=== PATIENT | male | born 1945 | race African-American/Black ===

== ENCOUNTER 2019-10-02 11:45 | Inpatient (IN) | payer MEDICARE ==
[2019-10-02] VITALS (36 sets, daily range): BP systolic 56–190; BP diastolic 33–96
[~2019-10-02] VITALS: Ht 175.3 cm; Wt 70.8 kg
[2019-10-02 13:01] LABS: CALCIUM 8.5 mg/dL (8.5-10.1); CREATININE 0.7 mg/dL (0.6-1.3); POTASSIUM 3.2 mmol/L (3.5-5.1)
[2019-10-02 13:02] LABS: APTT 25.9 Seconds (25.0-31.3); INR 1.1; PROTIME 10.8 Seconds (9.20-11.50)
[2019-10-02 13:12] LABS: ALBUMIN 3.2 g/dL (3.4-5.0); TOTAL BILIRUBIN 0.4 mg/dL (<0.1-1.0); TOTAL PROTEIN 6.8 g/dL (6.4-8.2)
[2019-10-02 14:20] LABS: URINE BILIRUBIN NEGATIVE (Negative); URINE BLOOD NEGATIVE (Negative); URINE CLARITY CLEAR; URINE COLOR YELLOW; URINE GLUCOSE-RANDOM TRACE (Negative); URINE KETONES TRACE (Negative); URINE LEUKOCYTES-REFLEX NEGATIVE (Negative); URINE NITRITE-REFLEX NEGATIVE (Negative); URINE PROTEIN NEGATIVE (Negative); URINE UROBILINOGEN 0.2 E.U./dl (0.2-1.0)
--- NOTE | 2019-10-02 14:33 | EKG ---
[place] [address] ELECTROCARDIOGRAM REPORT Name: COURTNEY SIDDIQUI Room: [place] [address] ADM IN [facility].#: [id number] Admission: 10/02/19 Attend Phys: Anthony Oden, Discharge: Date of : 47 Date of Service: 10/02/19 1212 Report #: [id number] THIS REPORT FOR: //name// [place] [facility] Test Date: 2019-10-02 Test Time: 12:12:58 Pat Name: COURTNEY SIDDIQUI Department: Room: [facility] Gender: M [employer] Laboratory Assistant: DIPAK : 1945 Requested By: Edmund Moon Order Number: [id number] MD: Sanjay Thompson Measurements Intervals [place] Rate: 108 P: 0 PA: 104 QRS: 63 QRSD: 101 T: -74 QT: 328 QTc: 440 Interpretive Statements Sinus tachycardia borderline low voltage, extremity leads Artifact in lead(s) I,II,III,aVR,aVL,aVF,V2,V3,V4,V5 No previous ECG available for comparison Electronically Signed On 10-02-2019 14:31:33 CDT by Sanjay Thompson [email or web address] <ELECTRONICALLY SIGNED> By: Sanjay Thompson MD, FACC 10/02/19 1431 121 1212 Sanjay Thompson MD, FAC /EPI
[2019-10-02 15:47] LABS: HEMATOCRIT 45.8 % (42.0-52.0); HEMOGLOBIN 15.8 gm/dL (14.0-18.0); MCH 32.2 pg (26.0-34.0); MCHC 34.5 g/dL (28.0-37.0); MCV 93.5 fL (80.0-100.0); MPV 8.3 fl. (7.2-11.1); NUCLEATED RBCS 0 /100WBC; PLATELET COUNT* 207 thou/uL (150-400); RDW-CV 13.9 % (10.5-14.5); WBC 5.9 thou/uL (4.0-11.0)
[2019-10-02 16:15] LABS: ABSOLUTE LYMPHOCYTES 0.4 thou/uL (0.8-5.3); ABSOLUTE MONOCYTES 0.2 thou/uL (0.0-1.2); ABSOLUTE NEUTROPHILS 5.3 thou/uL (1.6-8.1); ATYPICAL LYMPHS 2 %; PLATELET ESTIMATE ADEQUATE
[2019-10-02 16:45] LABS: PCO2 44.7 mmHg (35.0-45.0); pH 7.311 (7.340-7.450)
[2019-10-02 16:47] LABS: BE -4.2 mmol/L (-2 to +3)
[2019-10-02 16:49] LABS: PO2 187.4 mmHg (75.0-100.0)
[2019-10-02 18:06] LABS: AMP/METHAMP Negative (Negative); BARBITURATES Negative (Negative); BENZODIAZEPINES Negative (Negative); COCAINE Negative (Negative); METHADONE Negative (Negative); OPIATES Negative (Negative); PCP Negative (Negative); THC Negative (Negative)
[2019-10-02 20:20] LABS: PCO2 VENOUS 42.3 mmHg (41.0-51.0); PO2 VENOUS 37.9 mmHg (35.0-45.0)
[2019-10-03] VITALS (68 sets, daily range): BP systolic 75–184; BP diastolic 35–121
[2019-10-03 05:30] LABS: ABSOLUTE LYMPHOCYTES 1.7 thou/uL (0.8-5.3); ABSOLUTE MONOCYTES 0.6 thou/uL (0.0-1.2); ABSOLUTE NEUTROPHILS 8.1 thou/uL (1.6-8.1); BASOPHILS 0.3 %; EOSINOPHILS 0.1 %; HEMATOCRIT 41.6 % (42.0-52.0); HEMOGLOBIN 14.4 gm/dL (14.0-18.0); LYMPHOCYTES 16.5 %; MCH 32.1 pg (26.0-34.0); MCHC 34.5 g/dL (28.0-37.0); MONOCYTES 5.4 %; MPV 8.5 fl. (7.2-11.1); NUCLEATED RBCS 0 /100WBC; PLATELET COUNT* 226 thou/uL (150-400); POLYS 77.7 %; RBC 4.48 mil/uL (4.50-6.00); RDW-CV 13.9 % (10.5-14.5); WBC 10.4 thou/uL (4.0-11.0)
[2019-10-03 05:31] LABS: BE -4.3 mmol/L (-2 to +3); PCO2 VENOUS 38.6 mmHg (41.0-51.0); PO2 VENOUS 63.5 mmHg (35.0-45.0)
[2019-10-03 05:40] LABS: CALCIUM 7.7 mg/dL (8.5-10.1)
[2019-10-03 05:42] LABS: POTASSIUM 4.8 mmol/L (3.5-5.1)
--- NOTE | 2019-10-03 07:36 | NUR ---
SPOKE WITH EARLY IN SHIFT, STATES SHE IS UNSURE IF PT HAS MED ALLERGIES AND WILL CALL LATER TODAY WITH HOME MED LIST. 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 LEVOPHED GTT STARTED AT 2300, BP 60'S/30'S. PROPOFOL STOPPED AT THAT TIME, PRECEDEX INITIATED. GUARDING AND THRASHING WITH ABD PALPATION AND REPOSITIONING, PRN FENTANYL GIVEN ORDERED. MIRALAX AND DULCOLAX SUPPOSITORY GIVEN EARLY IN SHIFT, MODERATE TO LARGE SOFT BM THIS AM. PT AWOKE @ 0600 DURING CARES, FOLLOWED COMMANDS, WHEN TOLD HE WAS IN THE HOSPITAL PT BEGAN VIOLENTLY THRASHING REQUIRING PROPOFOL BE RESTARTED. PT HAS BEEN TURNED Q2HR THROUGHOUT THE SHIFT.
[2019-10-03 14:35] LABS: BE -4.8 mmol/L (-2 to +3); PCO2 VENOUS 41.1 mmHg (41.0-51.0); PO2 VENOUS 51.5 mmHg (35.0-45.0)
--- NOTE | 2019-10-03 15:45 | NUR ---
ICU rounds: Pt weaned from vent this morning around 10am, Pt was agitated post extubation, Ativan given, Pt was alert but unable to follow commands, Pt has been sleep since. Pulm following. Vitals stable. Covid pending. CM left for Pt's to complete assessment, awaiting call back. Cm received a call, [facility], transfer nurse, Charlene, can be contacted at [phone]. Following.
[2019-10-04] VITALS (25 sets, daily range): BP systolic 97–180; BP diastolic 52–138
[2019-10-04] MEDS ORDERED: ARTIFICIAL TEAR15 M4 OP (00:50)
[2019-10-04 04:07] LABS: HEMOGLOBIN 13.7 gm/dL (14.0-18.0); MCH 31.8 pg (26.0-34.0); MCHC 34.2 g/dL (28.0-37.0); MPV 8.8 fl. (7.2-11.1); RBC 4.3 mil/uL (4.50-6.00); RDW-CV 13.8 % (10.5-14.5); WBC 13.6 thou/uL (4.0-11.0)
[2019-10-04 04:24] LABS: ALBUMIN 2.4 g/dL (3.4-5.0); CALCIUM 8.3 mg/dL (8.5-10.1); CREATININE 0.9 mg/dL (0.6-1.3); MAGNESIUM 1.8 mg/dL (1.8-2.4); TOTAL BILIRUBIN 0.8 mg/dL (<0.1-1.0); TOTAL PROTEIN 5.6 g/dL (6.4-8.2)
[2019-10-04 04:25] LABS: POTASSIUM 3.1 mmol/L (3.5-5.1)
[2019-10-04 06:49] LABS: BE -4.3 mmol/L (-2 to +3); PCO2 27.8 mmHg (35.0-45.0); pH 7.436 (7.340-7.450)
[2019-10-04 06:51] LABS: PO2 57.7 mmHg (75.0-100.0)
--- NOTE | 2019-10-04 08:42 | NUR ---
2200- NG TUBE NOTED OUT TO 25CM, ADVANCED AND PLACEDMENT CONFIRMED BY XRAY. 2300- HR SUSTAINING 130'S. WHILE CONNECTING EKG TO VERIFY RHYTHM HR SUDDENLY INCREASED TO 240'S AND SUSTAINED APPROXIMATELY 30 SECONDS, SEE EKG. DR KU TO UNIT, METOPROLOL GIVEN PER HER ORDER 5MG IVP AND 25MG PER NG. TEMP 99.8 AT THAT TIME, TYLENOL GIVEN PER NG. BG AT THAT TIME 107. 0030- TF STARTED @ 20ML/HR, GOAL 50ML/HR. 0400- TF RESIDUAL 20ML, ADVANCED TO 40ML/HR. 0500- LUNG SOUNDS WET, PREVIOUSLY DIMINISHED WITH MILD COARSENESS. DR VILLALOBOS NOTIFIED, IVP LASIX GIVEN PER ORDER.
[2019-10-05] VITALS (21 sets, daily range): BP systolic 118–185; BP diastolic 57–106
[2019-10-05 05:59] LABS: HEMATOCRIT 39.5 % (42.0-52.0); HEMOGLOBIN 13.6 gm/dL (14.0-18.0); MCH 31.9 pg (26.0-34.0); MCHC 34.5 g/dL (28.0-37.0); MCV 92.5 fL (80.0-100.0); MPV 9.2 fl. (7.2-11.1); RBC 4.27 mil/uL (4.50-6.00); RDW-CV 14.2 % (10.5-14.5); WBC 13.8 thou/uL (4.0-11.0)
[2019-10-05 06:02] LABS: CALCIUM 8.7 mg/dL (8.5-10.1); CREATININE 1.2 mg/dL (0.6-1.3); POTASSIUM 3.5 mmol/L (3.5-5.1)
--- NOTE | 2019-10-05 18:54 | NUR ---
ASSESSMENT CHARTED. MOVING ALL EXTREMETIES. DOES NOT FOLLOW COMMANDS. HAS BEEN LESS RESTLESS THIS MORNING BUT PRETTY AGITATED THIS AFTERNOON. PT PULLED OUT NG TUBE. UNABLE TO PLACE ANOTHER DUE TO PATIENT THRASHING, BOTH NARES ATTEMPTED. ORDERS RECEIVED TO LEAVE OUT FOR NOW AND START IV FLUIDS. 3 BM'S THIS SHIFT. PT DOES NOT APPEAR TO BE IN ANY PAIN. T MAX 99.8 AT 1600 OTHERWISE AFIBILE. INFECTIOUS DISEASE CONSULTED AND LABS SENT DOWN. 1ST COVID TEST CAME BACK NEGATIVE- A SECOND ONE WAS SENT AROUND NOON TODAY. VSS THIS SHIFT.
[2019-10-06] VITALS (20 sets, daily range): BP systolic 94–162; BP diastolic 57–77
[2019-10-06 07:53] LABS: HEMATOCRIT 37.7 % (42.0-52.0); MCHC 34.4 g/dL (28.0-37.0); MCV 93.2 fL (80.0-100.0); RBC 4.04 mil/uL (4.50-6.00); RDW-CV 14.1 % (10.5-14.5); WBC 9.8 thou/uL (4.0-11.0)
[2019-10-06 08:15] LABS: ALBUMIN 2.3 g/dL (3.4-5.0); CALCIUM 8.1 mg/dL (8.5-10.1); CREATININE 1.1 mg/dL (0.6-1.3); MAGNESIUM 1.7 mg/dL (1.8-2.4); POTASSIUM 3.3 mmol/L (3.5-5.1); TOTAL PROTEIN 5.9 g/dL (6.4-8.2)
--- NOTE | 2019-10-06 15:25 | NUR ---
ICU rounds: 1st covid negative, completing a 2nd covid, its still pending. AMS, not in restraints but has soft mits. Burciaga in place. Central line. Replace NG tube. CM spoke with Pt's . Per , Pt is normally independent, completes cooking and cleaning. Pt has a walker and cane that he can use for mobility. Pt also wears a leg brace. No hx of HH or SNF> Hx of ARU at [facility]. Goal is home, CM to follow for dc needs. Following.
--- NOTE | 2019-10-06 17:01 | EKG ---
[place] [address] ELECTROCARDIOGRAM REPORT Name: COURTNEY SIDDIQUI Room: [address] ADM IN M.R.#: [id number] Admission: 10/02/19 Attend Phys: Anthony Oden, Discharge: Date of : 47 Date of Service: 10/03/19 2314 Report #: [id number] THIS REPORT FOR: //name// [facility] Test Date: 2019-10-03 Test Time: 23:14:28 Pat Name: COURTNEY SIDDIQUI Department: Room: [address] Gender: M Direct Casting Operator: HUGH : 1945 Requested By: Lauren Wright Order Number: [id number] Billie MD: Sanjay Thompson Measurements Intervals [place] Rate: 108 P: 65 OK: 192 QRS: 65 QRSD: 76 T: 3 QT: 306 QTc: 410 Interpretive Statements Sinus tachycardia Anterior infarct, old Compared to ECG 10/02/2019 12:12:58 Myocardial infarct finding now present Electronically Signed On 10-06-2019 16:59:26 CDT by Sanjay Thompson [email or web address] <ELECTRONICALLY SIGNED> By: Sanjay Thompson MD, FACC 10/06/19 1659 2314 2314 Sanjay Thompson MD, [facility] /EPI
--- NOTE | 2019-10-06 17:01 | EKG ---
[place] [address] ELECTROCARDIOGRAM REPORT Name: COURTNEY SIDDIQUI Room: [address] ADM IN ..#: [id number] Admission: 10/02/19 Attend Phys: Anthony Oden, Discharge: Date of : 47 Date of Service: 10/03/19 2249 Report #: [id number] THIS REPORT FOR: //name// [facility] Test Date: 2019-10-03 Test Time: 22:49:40 Pat Name: COURTNEY SIDDIQUI Department: Room: [address] Gender: M Icer Hand: TMPAUL : 1945 Requested By: Lauren Wright Order Number: [id number] Billie MD: Sanjay Thompson Measurements Intervals [place] Rate: 240 P: 76 TN: 121 QRS: 88 QRSD: 74 T: 254 QT: 225 QTc: 450 Interpretive Statements Supraventricular tachycardia Anterior infarct, old Repolarization abnormality, prob rate related Artifact in lead(s) I,II,III,aVR,aVL,aVF,V1,V2,V3 and baseline wander in lead(s) V3 Compared to ECG 10/02/2019 12:12:58 Myocardial infarct finding now present Early repolarization now present Sinus tachycardia no longer present Electronically Signed On 10-06-2019 16:59:20 CDT by Sanjay Thompson [email or web address] <ELECTRONICALLY SIGNED> By: Sanjay Thompson MD, [facility] 10/06/19 1659 48 48 Sanjay Thompson MD, [facility] /EPI
--- NOTE | 2019-10-06 18:58 | NUR ---
PT IS CONFUSED AND AGITATED PLACED AN NG TUBE IN RIGHT NARE PER DR SHORT NG TUBE LAST 10MINS AND PT PULLED OUT NG TUBE CH[place] SPOKE WITH FAMILY THROUGHOUT DAY WITH UPDATES
[2019-10-07] VITALS (10 sets, daily range): BP systolic 148–165; BP diastolic 68–76
[2019-10-07 07:08] LABS: HEMATOCRIT 36.7 % (42.0-52.0); HEMOGLOBIN 12.7 gm/dL (14.0-18.0); MCH 31.9 pg (26.0-34.0); MCHC 34.7 g/dL (28.0-37.0); MCV 91.9 fL (80.0-100.0); MPV 9.6 fl. (7.2-11.1); RBC 3.99 mil/uL (4.50-6.00); RDW-CV 13.6 % (10.5-14.5); WBC 8.2 thou/uL (4.0-11.0)
[2019-10-07 07:27] LABS: CREATININE 0.9 mg/dL (0.6-1.3); MAGNESIUM 1.7 mg/dL (1.8-2.4)
--- NOTE | 2019-10-07 08:01 | NUR ---
ASSUMED PATIENT CARE AT 1900. ASSESSMENTS COMPLETED CHARTED. CARDIAC MONITORING IN PLACE. PATIENT REMAINS CONFUSED BUT IS SPEAKING IN FULL SENTENCES. HOURLY ROUNDING IN PLACE FOR PATIENT SAFETY. BED LOCKED AND IN LOWEST POSITION. BED ALARM ON. CLWR.
--- NOTE | 2019-10-07 11:52 | NUR ---
PT CONFUSED AND STATES "WANT TO GO HOME". FREQUENT REORIENTATION PROVIDED. HAD 2 BM THIS AM. COMPLETE BATH GIVEN. VSS. ELECTROLYTES REPLACED PER PROTOCOL. REPORT GIVEN TO ELSA VANESSA, DONNELL.
--- NOTE | 2019-10-07 15:42 | NUR ---
ICU rounds: Tele status. Speaking more clearly. A&Ox1. CM to following for dispo.
--- NOTE | 2019-10-07 16:33 | NUR ---
[place] RESTING IN BED. ALERT AND ORIENTED TO SELF BUT VERY CONFUSED AND IMPULSIVE. HE HAS A ROSS TO DRAIN, Q2H TURNS, FREQUENT REORIENTATION, ASSIST WITH FEEDING, INCONTINENT OF BOWEL. BLOOD GLUCOSE CHECKS AC/HS WITH SLIDING SCALE INSULIN COVERAGE. HOURLY ROUNDING COMPLETED FOR PATIENT SAFETY.
[2019-10-08] VITALS: BP 153/67
[2019-10-08 03:40] VITALS: BP 152/65
[2019-10-08 06:47] LABS: ALBUMIN 2.1 g/dL (3.4-5.0); CALCIUM 7.9 mg/dL (8.5-10.1); CREATININE 0.8 mg/dL (0.6-1.3); MAGNESIUM 1.8 mg/dL (1.8-2.4); POTASSIUM 3.3 mmol/L (3.5-5.1); TOTAL BILIRUBIN 0.7 mg/dL (<0.1-1.0); TOTAL PROTEIN 5.6 g/dL (6.4-8.2)
--- NOTE | 2019-10-08 07:41 | NUR ---
PT CONFUSED. CAN BE IMPULSIVE. PT REMAINED CALM MOST OF SHIFT. PT SLEPT OFF AND ON. DROPLET PRECAUTION IN PLACE, PENDING RESP PANELS. ROSS IN PLACE. INCONTINENT OF BOWEL. FALL PRWECAUTION IN PLACE. CALL LIGHT WITHIN REACH. HOURLY ROUNDINGS MADE. WILL CONTINUE TO MONITOR.
[2019-10-08 08:00] VITALS: BP 149/68
[2019-10-08 11:48] VITALS: BP 159/62
[2019-10-08 16:04] VITALS: BP 152/76
--- NOTE | 2019-10-08 16:06 | NUR ---
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
[2019-10-08 20:00] VITALS: BP 177/71
[2019-10-09] VITALS: BP 166/70
[2019-10-09 04:00] VITALS: BP 119/83
--- NOTE | 2019-10-09 05:58 | NUR ---
ASSESSMENTS COMPLETED AT BEDSIDE, PLEASE REFER TO CHARTING. MEDICATIONS ADMINISTERD PER MAR. HOURLY ROUNDING COMPLETED FOR SAFETY. BED ALARM ON AND CALL LIGHT WITHIN REACH. EPISODE OF IMPULSIVE BEHAVIOR AT START OF SHIFT, NO OTHER ISSUES THROUGH OUT NIGHT.
[2019-10-09 08:00] VITALS: BP 154/73
--- NOTE | 2019-10-09 09:12 | NUR ---
CM left VM for Pt's to discuss disposition. Pt will likely need skilled prior to returning home. Await [facility] n[facility] eval.
[2019-10-09 11:56] VITALS: BP 145/59
--- NOTE | 2019-10-09 15:39 | NUR ---
PT IS A/O X2,VSS,SHEET ROCK LAYER IN PLACE.NO C/O PAIN.CT HEAD COMPLETED.PT NOT ABLE TO COMPLETE MRI DUE TO IMPLANTED DEVICE.PT SAT UP IN CHAIR FOR SEVERAL HOURS THIS AM.PT STILL HAS POOR APPETITE AND NEEDS ASSISTANCE AND ENCOURAGEMENT WITH MEALS.CALL LIGHT AND FALL PRECAUTIONS IN PLACE.WILL CONTINUE TO MONITOR FOR DURATION OF SHIFT.
[2019-10-09 15:59] VITALS: BP 138/62
[2019-10-09 20:00] VITALS: BP 175/82
[2019-10-10] VITALS: BP 153/78
[2019-10-10 04:00] VITALS: BP 158/49
--- NOTE | 2019-10-10 05:40 | NUR ---
ASSESSMENTS COMPLETED AT BEDSIDE, PLEASE REFER TO CHARTING. MEDICATIONS ADMINISTERD PER MAR. HOURLY ROUNDING COMPLETED FOR SAFETY. BED ALARM ON AND CALL LIGHT WITHIN REACH. PT HAD NO EPISODES OF IMPULISVE BEHAVIOR THIS SHIFT, DID PRESENT WITH FLAT AFFECT. NO CONCERNS NOTED BY PT.
[2019-10-10 08:00] VITALS: BP 140/58
--- NOTE | 2019-10-10 11:39 | NUR ---
CM left another VM for Pt's regarding facility choice. Per therapy evals, Pt is not participating and continues to be confused. CM asked that PT see Pt today. CM to continue to attempt to reach Pt's . Following.
[2019-10-10 12:00] VITALS: BP 152/64
--- NOTE | 2019-10-10 14:20 | NUR ---
CM spoke with Pt's , in agreement that Pt will likely need rehab prior to returning home, recognizes that Pt is confused and states that this is not his baseline. CM to fax referrals to [facility] and [facility], rehab consult still pending. Pt needs to work with therapies. Following.
[2019-10-10 16:00] VITALS: BP 172/69
--- NOTE | 2019-10-10 17:58 | NUR ---
PT VSS, ORIENTED TO SELF, IMPULSIVE AND CAN GET AGGITATED AND BE COMBATIVE, SR WITH PVCS ON TELE, ROOM AIR, UP WITH ONE TO CHAIR AND COMMODE, ROSS CATHETER, INCONTINENT OF BOWEL, TRIPLE LUMEN RIGHT IJ, ACCUCHECKS, HOURLY ROUNDING PERFORMED, POSSESSIONS AND CALL LIGHT WITHIN REACH.
[2019-10-10 20:00] VITALS: BP 126/53
[2019-10-11] VITALS (33 sets, daily range): BP systolic 88–164; BP diastolic 49–75
--- NOTE | 2019-10-11 05:50 | NUR ---
ASSESSMENTS COMPLETED AT BEDSIDE, PLEASE REFER TO CHARTING. MEDICATIONS ADMINISTERD PER MAR. HOURLY ROUNDING COMPLETED FOR SAFETY. BED ALARM ON AND CALL LIGHT WITHIN REACH.
[2019-10-11 13:45] LABS: HEMATOCRIT 43.8 % (42.0-52.0); HEMOGLOBIN 13.7 gm/dL (14.0-18.0); MCH 31.8 pg (26.0-34.0); MCHC 31.4 g/dL (28.0-37.0); MCV 101.2 fL (80.0-100.0); MPV 8.4 fl. (7.2-11.1); NUCLEATED RBCS 0 /100WBC; PLATELET COUNT* 507 thou/uL (150-400); RBC 4.33 mil/uL (4.50-6.00); RDW-CV 15.8 % (10.5-14.5)
[2019-10-11 13:53] LABS: ALBUMIN 2.9 g/dL (3.4-5.0); ALKALINE PHOSPHATASE 118 U/L (46-116); BUN 25 mg/dL (7-18); CALCIUM 9.3 mg/dL (8.5-10.1); CHLORIDE 103 mmol/L (98-107); CREATININE 1.8 mg/dL (0.6-1.3); NT-PRO BRAIN NAT PEPTIDE 162 pg/mL (<300); POTASSIUM 5.7 mmol/L (3.5-5.1); SGOT 19 U/L (15-37); SGPT 43 U/L (30-65); SODIUM 138 mmol/L (136-145); TOTAL BILIRUBIN 0.5 mg/dL (<0.1-1.0); TOTAL PROTEIN 7.4 g/dL (6.4-8.2)
[2019-10-11 14:10] LABS: ANION GAP 30 mmol/L (7-16); GLUCOSE 565 mg/dL (70-99)
[2019-10-11 14:15] LABS: ABSOLUTE LYMPHOCYTES 1.3 thou/uL (0.8-5.3); ABSOLUTE MONOCYTES 0.3 thou/uL (0.0-1.2); ABSOLUTE NEUTROPHILS 30.4 thou/uL (1.6-8.1); PLATELET ESTIMATE ADEQUATE
[2019-10-11 14:19] LABS: CO2 < 5 mmol/L (21-32)
[2019-10-11 14:57] LABS: BE -21.6 mmol/L (-2 to +3)
[2019-10-11 14:58] LABS: PCO2 < 17.0 mmHg (35.0-45.0)
[2019-10-11 15:00] LABS: pH 7.177 (7.340-7.450)
[2019-10-11 15:01] LABS: PO2 141.1 mmHg (75.0-100.0)
[2019-10-11 17:52] LABS: URINE BLOOD 2+ (Negative); URINE COLOR YELLOW; URINE GLUCOSE-RANDOM NEGATIVE (Negative); URINE LEUKOCYTES-REFLEX NEGATIVE (Negative); URINE NITRITE-REFLEX NEGATIVE (Negative); URINE PROTEIN TRACE (Negative); URINE SPECIFIC GRAVITY >= 1.030 (1.005-1.030); URINE UROBILINOGEN 0.2 E.U./dl (0.2-1.0)
[2019-10-11 17:54] LABS: ICTOTEST (BILI CONFIRMATORY) Negative (Negative); URINE BILIRUBIN 2+ (Negative); URINE CLARITY CLOUDY; URINE KETONES 3+ (Negative)
[2019-10-11 18:00] LABS: SQUAMOUS >10 Many /LPF (0-3); URINE RBC 0-2 Rare /HPF (0-2); URINE WBC-REFLEX None Seen /HPF (0-5)
[2019-10-11 18:01] LABS: AMORPHOUS URATES Moderate /LPF (None Seen); FINE GRANULAR CASTS >10 Many /LPF (None Seen); HYALINE CASTS 0-3 Few /LPF (None Seen)
--- NOTE | 2019-10-11 19:00 | NUR ---
PATIENT TO ICU AT 1530 FOR DECREASED MENTATION AND ABNORMAL ABD. INTUBATED AT 1605. HEART RATE ELEVATED 120-130'S WHEN FIRST BROUGHT INTO ROOM. INTUBATION CAUSED HEART RATE TO INCREASE TO 150-160'S. SEDATED CURRENTLY ON FENTANYL AND PROPOFOL. DKA PROTOCOL INITIATED. BS UPON ARRIVAL TO ROOM 283. INSULIN STARTED AT 5 UNITS/HR. ABG ORDERED FOR 1899. FOLLOW UP LABS ORDERED FOR 1999. ASSESSMENT CHARTED. VSS AT THIS TIME. WILL CONTINUE TO MONITOR.
[2019-10-11 19:13] LABS: MAGNESIUM 2.3 mg/dL (1.8-2.4); PHOSPHORUS* 7.1 mg/dL (2.5-4.9)
--- NOTE | 2019-10-11 20:03 | NUR ---
ASSUMED CARE OF PATIENT AROUND 0730. PT. APPEARED CALM IN BED, IN NO APPARENT DISCOMFORT. PLACED NC 4L O2 SATURATION IN THE LOW 80S WHEN ASSESSED. SATS STABILIZED TO UPPER 90S. RT NOTIFIED. MESSAGED DR. SHORT TO APPRAISE OF ELEVATED BLOOD SUGAR AND CHANGE IN STATUS FROM SHIFT REPORT. BLOOD GLUCOSE LAB DRAWN. MESSAGED OF LAB RESULT AND TACHYCARDIA TREND. CXR PERFORMED BUT UNREMARKABLE. STAT ABG PERFORMED. RESULTS CONVEYED TO DR. SHORT BY LAB. PT. TRANSPORTED OUT OF ROOM FOR ABD. CAT SCAN AND TRANSFERED TO ICU FROM THERE. REPORT GIVEN TO ICU NURSE FOR ADMISSION TO ICU. ORDERS RECEIVED FROM DR. BAUTISTA AND DR. GRACIA. MESSAGED AND SPOKE TO DR. SHORT TO APPRAISE OF DEVELOPMENTS. HOURLY ROUNDING WAS PERFORMED.
[2019-10-11 20:22] LABS: ALBUMIN 2.5 g/dL (3.4-5.0); CALCIUM 8.8 mg/dL (8.5-10.1); CREATININE 1.6 mg/dL (0.6-1.3); MAGNESIUM 1.9 mg/dL (1.8-2.4); PHOSPHORUS* 1.6 mg/dL (2.5-4.9)
[2019-10-11 20:25] LABS: POTASSIUM 3.8 mmol/L (3.5-5.1)
[2019-10-11 20:27] LABS: BE -12.1 mmol/L (-2 to +3); PCO2 22.2 mmHg (35.0-45.0); pH 7.334 (7.340-7.450)
[2019-10-11 20:28] LABS: PO2 124.6 mmHg (75.0-100.0)
[2019-10-12] VITALS (41 sets, daily range): BP systolic 96–160; BP diastolic 51–87
[2019-10-12 00:47] LABS: ALBUMIN 2.4 g/dL (3.4-5.0); CALCIUM 9.1 mg/dL (8.5-10.1); CREATININE 1.6 mg/dL (0.6-1.3); MAGNESIUM 1.8 mg/dL (1.8-2.4); PHOSPHORUS* 0.6 mg/dL (2.5-4.9); POTASSIUM 3.9 mmol/L (3.5-5.1)
[2019-10-12 04:11] LABS: BE -10.5 mmol/L (-2 to +3); pH 7.436 (7.340-7.450)
[2019-10-12 04:14] LABS: PCO2 < 17.0 mmHg (35.0-45.0)
[2019-10-12 04:15] LABS: PO2 128.5 mmHg (75.0-100.0)
[2019-10-12 04:31] LABS: ABSOLUTE BASOPHILS 0.1 thou/uL (0.0-0.2); BASOPHILS 0.4 %; HEMATOCRIT 35.8 % (42.0-52.0); HEMOGLOBIN 12.2 gm/dL (14.0-18.0); LYMPHOCYTES 5.2 %; MCH 31.5 pg (26.0-34.0); MCHC 34.2 g/dL (28.0-37.0); MONOCYTES 0.2 %; MPV 7.3 fl. (7.2-11.1); NUCLEATED RBCS 0 /100WBC; POLYS 94.2 %; RBC 3.88 mil/uL (4.50-6.00); WBC 18.1 thou/uL (4.0-11.0)
[2019-10-12 04:35] LABS: MCV 92.2 fL (80.0-100.0); PLATELET COUNT* 356 thou/uL (150-400)
[2019-10-12 05:00] LABS: PREALBUMIN 15.3 mg/dL (18.0-35.7)
[2019-10-12 05:04] LABS: ALBUMIN 2.3 g/dL (3.4-5.0); ALKALINE PHOSPHATASE 84 U/L (46-116); ANION GAP 16 mmol/L (7-16); BUN 24 mg/dL (7-18); CALCIUM 9.2 mg/dL (8.5-10.1); CHLORIDE 114 mmol/L (98-107); CO2 15 mmol/L (21-32); CREATININE 1.5 mg/dL (0.6-1.3); GLUCOSE 182 mg/dL (70-99); PHOSPHORUS* 1.1 mg/dL (2.5-4.9); POTASSIUM 4.6 mmol/L (3.5-5.1); SGOT 18 U/L (15-37); SGPT 32 U/L (30-65); SODIUM 145 mmol/L (136-145); TOTAL BILIRUBIN 0.3 mg/dL (<0.1-1.0)
--- NOTE | 2019-10-12 08:09 | NUR ---
RECEIVED REPORT AND ASSUMED CARE AT 1900. VSS. ICU MONITORING IN PLACE. ASSESSMENT COMPLETED CHARTED. PT SEDATED/ VENTED. MEDICATION GTT PER ORDERS. BED LOCKED IN LOWEST POSITION, BED ALARM ON. POSITION CHANGED EVERY TWO HOURS, HEELS OFF LOADED. ORAL CARE COMPLETED. ROUNDING COMPLETED AND ALL NEEDS MET.
[2019-10-12 08:26] LABS: ALBUMIN 2.3 g/dL (3.4-5.0); CALCIUM 9.1 mg/dL (8.5-10.1); CREATININE 1.5 mg/dL (0.6-1.3); MAGNESIUM 1.8 mg/dL (1.8-2.4); PHOSPHORUS* 1.7 mg/dL (2.5-4.9); POTASSIUM 4.6 mmol/L (3.5-5.1)
[2019-10-12 11:09] LABS: URINE BLOOD 1+ (Negative); URINE CLARITY CLOUDY; URINE COLOR STRAW; URINE GLUCOSE-RANDOM NEGATIVE (Negative); URINE KETONES TRACE (Negative); URINE LEUKOCYTES NEGATIVE (Negative); URINE NITRITE NEGATIVE (Negative); URINE PROTEIN 1+ (Negative); URINE SPECIFIC GRAVITY >= 1.030 (1.005-1.030); URINE UROBILINOGEN 0.2 E.U./dl (0.2-1.0)
[2019-10-12 11:12] LABS: ICTOTEST (BILI CONFIRMATORY) Negative (Negative); URINE BILIRUBIN 2+ (Negative)
[2019-10-12 11:33] LABS: SQUAMOUS NONE SEEN /LPF (0-3); URINE RBC 3-10 Few /HPF (0-2); URINE WBC None Seen /HPF (0-5)
[2019-10-12 11:34] LABS: AMORPHOUS URATES Many /LPF (None Seen); CRYSTALS None Seen /LPF (None Seen); HYALINE CASTS 0-3 Few /LPF (None Seen); MUCUS None Seen strn/LPF (None Seen)
[2019-10-12 12:18] LABS: ALBUMIN 2.4 g/dL (3.4-5.0); CALCIUM 9.7 mg/dL (8.5-10.1); CREATININE 1.5 mg/dL (0.6-1.3); PHOSPHORUS* 1.5 mg/dL (2.5-4.9); POTASSIUM 4.4 mmol/L (3.5-5.1)
[2019-10-12] MEDS ORDERED: ARTIFICIAL TEAR15 M4 OPHTHALMIC (12:21)
[2019-10-12] MEDS ORDERED: NORVASC 2.5 MG2.5 M1 PO (12:22)
[2019-10-12] MEDS ORDERED: VOLTAREN GEL 1100 GM TOP (12:23)
[2019-10-12] MEDS ORDERED: PREDNISOLONE ACE5 ML OPHTHALMIC (12:24)
[2019-10-12] MEDS ORDERED: INSULIN AS100 UNIT/1 SUBQ (12:25)
[2019-10-12] MEDS ORDERED: LANTUSSOLASTAR SUBQ (12:26)
[2019-10-12 16:06] LABS: ALBUMIN 2.4 g/dL (3.4-5.0); CALCIUM 9.1 mg/dL (8.5-10.1); CREATININE 1.3 mg/dL (0.6-1.3); MAGNESIUM 1.8 mg/dL (1.8-2.4); PHOSPHORUS* 2.3 mg/dL (2.5-4.9); POTASSIUM 4.6 mmol/L (3.5-5.1)
--- NOTE | 2019-10-12 19:05 | NUR ---
ASSESSMENT CHARTED. VSS THROUGHOUT SHIFT. SEDATION CHANGED TO PRECEDEX AND FENTANYL. ONCE TITRATED TO MAX PATIENT LESS AGITATED. PROPOFOL ORDERED IF NEEDED. HR 40-50 SINCE STARTING PRECEDEX BUT MAINTAINS MOSTLY IN THE 50'S. DKA PROTOCOL ONGOING WITH LAST BLOOD SUGAR BEING 179 AT 1900. INSULIN DRIP RUNNING AT 2 UNITS/HR. Q2H TURNS. PATIENT RESTING WELL NOW. NO OTHER EVENTS DURING THIS SHIFT. UPDATED.
--- NOTE | 2019-10-12 19:17 | CON ---
[address] [address] CONSULTATION Name: ARTURCOURTNEY Lynn Room: [address] IN M.R.#: [id number] Admission: 10/02/19 Attend Phys: Anthony Oden MD Discharge: Date of : 47 Report #: [id number] THIS REPORT FOR: //name// cc: [facility] physician unknown [facility] physician unknown ~ THIS REPORT FOR: //name// CC: Anthony Oden [facility] DATE OF SERVICE: 10/12/2019 REASON FOR CONSULTATION: I was asked to see this patient emergently yesterday for acute respiratory failure. HISTORY OF PRESENT ILLNESS: The patient was not responsive. His ABG did show severe metabolic acidosis. The patient was intubated emergently. He was found to be in DKA, was started on DKA protocol. Currently, he is on the ventilator and is not responsive. He is agitated. He is on Precedex and fentanyl. He has a small amount of ET tube secretion. He was admitted on 10/01 due to altered mental status. His blood glucose was 36. His mental status did not improve with correcting his blood glucose. He continued to be confused and was on the ventilator. He was extubated on 10/02. He was somewhat alert, but his status got worse yesterday. He is currently on the ventilator. PAST MEDICAL HISTORY: Diabetes mellitus, hypertension, weight loss, CVA, status post cervical surgery in 2011. ALLERGIES: LISINOPRIL, SIMVASTATIN. MEDICATIONS: Currently, he is on IV fluid, Precedex, fentanyl, vancomycin, Solu-Medrol, Protonix, insulin drip, levofloxacin, metoprolol, thiamine, cefdinir, Lovenox. SOCIAL HISTORY: Positive for smoking, details are not known. FAMILY HISTORY: Hypertension per chart. REVIEW OF SYSTEMS: As mentioned as above. I have discussed the patient with RN, other systems otherwise negative. PHYSICAL EXAMINATION: [place] [address] CONSULTATION Name: COURTNEY SIDDIQUI Lynn Room: [address]#: [id number] Admission: 10/02/19 Attend Phys: Anthony Oden MD Discharge: Date of : 47 Report #: [id number] GENERAL: This is a thin, frail, malnourished gentleman. VITAL SIGNS: His O2 saturation on 40% FiO2 is 98%, respiratory rate 30, heart rate 68, blood pressure 110/57, temperature 37.3. HEENT: Normocephalic, atraumatic. Pupils equal, round, reactive to light. He is orally intubated. Nose is clear. NECK: There is no lymphadenopathy or thyromegaly. CARDIOVASCULAR: Regular rate and rhythm. PMI is nondisplaced. CHEST: Inspection is normal. LUNGS: Bibasilar crackles, dullness at the bases. ABDOMEN: Soft. Bowel sounds diminished. No mass. EXTREMITIES: There is no edema. LYMPHATICS: There is no lymphadenopathy. SKIN: Chronic changes. NEUROLOGIC: On the vent, on sedation, but agitated at times. LABORATORY DATA: I reviewed the following lab data: Chest x-ray shows ET tube is in good position, no infiltrate, COPD changes. CT of abdomen and pelvis showed nonobstructing bilateral renal calculi, small fat containing right indirect inguinal hernia. WBC yesterday was 32, today is 18.1, on 10/06 was 8.2; hemoglobin 12.2; platelets 356. Sodium 144, potassium 4.6, chloride 114, CO2 of 15, BUN 26, creatinine 1.5, glucose 283. Lactic acid 1.8. His COVID-19 is negative. ABG this morning; pH 7.43, pCO2 less than 17, pO2 128 on assist control rate of 30, tidal volume 450, PEEP of 5, FiO2 of 40%. Yesterday ABG before intubation; pH 7.1, pCO2 less than 17. IMPRESSION: 1. Acute respiratory failure secondary to severe metabolic acidosis, altered mental status? aspiration pneumonia versus others. 2. Diabetic ketoacidosis. 3. Encephalopathy due to severe metabolic acidosis secondary to diabetic ketoacidosis. 4. Acute kidney injury. 5. History of cerebrovascular accident. 6. History of pneumonia, now questionable aspiration pneumonia. 7. Diabetes mellitus. 8. Leukocytosis. PLAN AND RECOMMENDATIONS: 1. Titrate FiO2 to keep O2 saturation 94%. 2. Continue ventilator support until he is more stable and more alert. Vent setting was reviewed. 3. Antibiotic per ID. 4. Continue DKA treatment per protocol. 5. Lovenox for DVT prophylaxis. 6. Protonix [place] [address] CONSULTATION Name: COURTNEY SIDDIQUI Room: [address] IN M.R.#: [id number] Admission: 10/02/19 Attend Phys: Anthony Oden MD Discharge: Date of : 47 Report #: [id number] 7. Nephrology is consulted and monitor creatinine. 8. Follow up cultures. Thank you very much for allowing me to participate in care of this very nice gentleman. discussed w rn, rt The patient is critically ill. This critical care time 30 minutes without overlap. <ELECTRONICALLY SIGNED> By: Carmen Wang MD 10/12/19 1917 [id number] [id number] Wang MD /nt
[2019-10-12 20:50] LABS: ALBUMIN 2.3 g/dL (3.4-5.0); CALCIUM 9.1 mg/dL (8.5-10.1); CREATININE 1.4 mg/dL (0.6-1.3); MAGNESIUM 1.9 mg/dL (1.8-2.4); PHOSPHORUS* 2.4 mg/dL (2.5-4.9); POTASSIUM 4.9 mmol/L (3.5-5.1)
[2019-10-13] VITALS (30 sets, daily range): BP systolic 110–169; BP diastolic 55–92
[2019-10-13 00:46] LABS: ALBUMIN 2.2 g/dL (3.4-5.0); CALCIUM 9.1 mg/dL (8.5-10.1); CREATININE 1.3 mg/dL (0.6-1.3); MAGNESIUM 1.9 mg/dL (1.8-2.4); PHOSPHORUS* 2.5 mg/dL (2.5-4.9); POTASSIUM 4.6 mmol/L (3.5-5.1)
[2019-10-13 04:28] LABS: ABSOLUTE BASOPHILS 0.1 thou/uL (0.0-0.2); ABSOLUTE LYMPHOCYTES 1.1 thou/uL (0.8-5.3); ABSOLUTE MONOCYTES 0.6 thou/uL (0.0-1.2); ABSOLUTE NEUTROPHILS 19.3 thou/uL (1.6-8.1); BASOPHILS 0.4 %; HEMATOCRIT 36.6 % (42.0-52.0); HEMOGLOBIN 12.4 gm/dL (14.0-18.0); LYMPHOCYTES 5.2 %; MCH 31.3 pg (26.0-34.0); MCHC 33.9 g/dL (28.0-37.0); MCV 92.2 fL (80.0-100.0); MONOCYTES 2.8 %; NUCLEATED RBCS 0 /100WBC; PLATELET COUNT* 354 thou/uL (150-400); POLYS 91.6 %; RBC 3.97 mil/uL (4.50-6.00); RDW-CV 14.7 % (10.5-14.5); WBC 21.1 thou/uL (4.0-11.0)
[2019-10-13 04:30] LABS: PCO2 24.3 mmHg (35.0-45.0); pH 7.382 (7.340-7.450)
[2019-10-13 04:54] LABS: PO2 171.1 mmHg (75.0-100.0)
[2019-10-13 05:57] LABS: ALBUMIN 2.3 g/dL (3.4-5.0); CALCIUM 9.3 mg/dL (8.5-10.1); CREATININE 1.3 mg/dL (0.6-1.3); PHOSPHORUS* 2.6 mg/dL (2.5-4.9); POTASSIUM 4.7 mmol/L (3.5-5.1)
[2019-10-13 08:21] LABS: ALBUMIN 2.2 g/dL (3.4-5.0); PHOSPHORUS* 2.7 mg/dL (2.5-4.9); POTASSIUM 4.4 mmol/L (3.5-5.1)
[2019-10-13 10:17] LABS: URINE BILIRUBIN NEGATIVE (Negative); URINE BLOOD TRACE (Negative); URINE CLARITY CLEAR; URINE COLOR YELLOW; URINE GLUCOSE-RANDOM NEGATIVE (Negative); URINE KETONES NEGATIVE (Negative); URINE LEUKOCYTES NEGATIVE (Negative); URINE NITRITE NEGATIVE (Negative); URINE PROTEIN NEGATIVE (Negative); URINE SPECIFIC GRAVITY >= 1.030 (1.005-1.030); URINE UROBILINOGEN 0.2 E.U./dl (0.2-1.0)
[2019-10-13 12:14] LABS: ALBUMIN 2.1 g/dL (3.4-5.0); CALCIUM 8.6 mg/dL (8.5-10.1); MAGNESIUM 1.9 mg/dL (1.8-2.4); PHOSPHORUS* 2.9 mg/dL (2.5-4.9); POTASSIUM 4.5 mmol/L (3.5-5.1)
[2019-10-13 16:44] LABS: ALBUMIN 2.2 g/dL (3.4-5.0); CALCIUM 8.6 mg/dL (8.5-10.1); MAGNESIUM 1.9 mg/dL (1.8-2.4); PHOSPHORUS* 2.7 mg/dL (2.5-4.9); POTASSIUM 4.3 mmol/L (3.5-5.1)
--- NOTE | 2019-10-13 19:58 | NUR ---
ASSESSMENT CHARTED. PATIENT WITH INCREASED TREMORS WHEN AWAKE AND AGITATED. HE IS UNABLE TO FOLLOW ANY COMMAND. ABLE TO REACH UP TOWARDS ET TUBE. WEANING TRIAL SET FOR 0900 IN THE MORNING. SEDATION CHANGED FROM PRECEDEX TO PROPOFOL DUE TO EXTREME BRADYCARDIA WITH HR IN THE 30'S. PT APPEARS MORE RELAXED WITH PROPOFOL AND IS NOT AGITATED WHEN TURNED. TREMORS APPEAR TO BE BETTER WELL. PATIENT REMAINS ON DKA PROTOCOL. BS'S MAINTAINED IN THE 150-200 RANGE THROUGHOUT THE DAY ON 3 UNITS/HR.
[2019-10-13 20:33] LABS: ALBUMIN 2.1 g/dL (3.4-5.0); CALCIUM 9.1 mg/dL (8.5-10.1); CREATININE 0.9 mg/dL (0.6-1.3); PHOSPHORUS* 2.5 mg/dL (2.5-4.9); POTASSIUM 4.6 mmol/L (3.5-5.1)
[2019-10-14] VITALS (33 sets, daily range): BP systolic 93–161; BP diastolic 42–88
[2019-10-14 00:47] LABS: CALCIUM 8.7 mg/dL (8.5-10.1); CREATININE 0.9 mg/dL (0.6-1.3); MAGNESIUM 1.8 mg/dL (1.8-2.4); PHOSPHORUS* 2.5 mg/dL (2.5-4.9)
[2019-10-14 04:55] LABS: HEMATOCRIT 36.6 % (42.0-52.0); HEMOGLOBIN 12.3 gm/dL (14.0-18.0); MCH 30.7 pg (26.0-34.0); MCHC 33.7 g/dL (28.0-37.0); MCV 91.2 fL (80.0-100.0); MPV 7.7 fl. (7.2-11.1); NUCLEATED RBCS 0 /100WBC; PLATELET COUNT* 345 thou/uL (150-400); RBC 4.01 mil/uL (4.50-6.00); RDW-CV 14.7 % (10.5-14.5); WBC 13.4 thou/uL (4.0-11.0)
[2019-10-14 05:10] LABS: CALCIUM 8.8 mg/dL (8.5-10.1); CREATININE 0.9 mg/dL (0.6-1.3); MAGNESIUM 1.8 mg/dL (1.8-2.4); POTASSIUM 3.8 mmol/L (3.5-5.1); TOTAL BILIRUBIN 0.3 mg/dL (<0.1-1.0); TOTAL PROTEIN 5.4 g/dL (6.4-8.2)
[2019-10-14 05:18] LABS: PHOSPHORUS* 2.5 mg/dL (2.5-4.9)
[2019-10-14 05:52] LABS: ABSOLUTE LYMPHOCYTES 0.8 thou/uL (0.8-5.3); ABSOLUTE MONOCYTES 0.1 thou/uL (0.0-1.2); ABSOLUTE NEUTROPHILS 12.5 thou/uL (1.6-8.1); PLATELET ESTIMATE ADEQUATE
--- NOTE | 2019-10-14 06:59 | NUR ---
ASSUMED PATIENT CARE AT 1900. ASSESSMENTS COMPLETED CHARTED. CARDIAC MONITORING IN PLACE. PATIENT HAD A RUN VTACH DURING SUCTIONING BY RT ONCE DURING SHIFT. BED LOCKED AND IN LOWEST POSITION. FALL PRECAUTIONS IN PLACE FOR PATIENT SAFETY.
[2019-10-14 08:07] LABS: CALCIUM 8.6 mg/dL (8.5-10.1); CREATININE 0.8 mg/dL (0.6-1.3); MAGNESIUM 1.8 mg/dL (1.8-2.4); PHOSPHORUS* 2.6 mg/dL (2.5-4.9)
[2019-10-14 08:09] LABS: POTASSIUM 4.8 mmol/L (3.5-5.1)
--- NOTE | 2019-10-14 11:52 | NUR ---
ICU rounds: Pt intubated, weaning trial attempted this AM, didn't go well, will reattempt tomorrow. Central line. Restraints. [place]. Neuro following, EGD today, may need MRI and spinal tap, following.
[2019-10-14 12:18] LABS: ALBUMIN 2.1 g/dL (3.4-5.0); CALCIUM 8.8 mg/dL (8.5-10.1); CREATININE 0.8 mg/dL (0.6-1.3); MAGNESIUM 1.9 mg/dL (1.8-2.4); PHOSPHORUS* 2.4 mg/dL (2.5-4.9); POTASSIUM 3.5 mmol/L (3.5-5.1)
[2019-10-14 17:43] LABS: ALBUMIN 2.2 g/dL (3.4-5.0); CALCIUM 8.8 mg/dL (8.5-10.1); CREATININE 0.9 mg/dL (0.6-1.3); MAGNESIUM 1.8 mg/dL (1.8-2.4); PHOSPHORUS* 2.5 mg/dL (2.5-4.9)
--- NOTE | 2019-10-14 18:41 | NUR ---
PT HAD WEANING TRIAL TODAY SEDATION TURNED OFF AT 0830 BY 0900 PT WAS VERY AGITATED NOT FOLLOWING COMMANDS NOT REDIRECTABLE BREATHING 60 BREATHS PER MIN PER DR WEEKS TURN SEDATION BACK ON AND TRIAL TOMORROW AT 0900 TURN FENTANYL OFF AT [address] WEEKS TO GET HERE TO TURN OFF PROPOFOL EEG COMPLETED TODAY PT REMAINS INTUBATED AND SEDATED
[2019-10-14 20:13] LABS: ALBUMIN 2.2 g/dL (3.4-5.0); CALCIUM 8.8 mg/dL (8.5-10.1); MAGNESIUM 1.8 mg/dL (1.8-2.4); PHOSPHORUS* 2.6 mg/dL (2.5-4.9); POTASSIUM 3.8 mmol/L (3.5-5.1)
--- NOTE | 2019-10-14 23:06 | NUR ---
RENAL PANEL AND MAGNESIUM RETURNED ON PATIENT WNL. PAGED PHYSICIAN AND DKA PROTOCOL WAS STOPPED. INSULIN GTT STOPPED AND FLUIDS RESTARTED ON NS @ 100ML/HR. Q6H ACCUCHECKS PER PROTOCOL WITH SS INSULIN. WCTM
[2019-10-15] VITALS (38 sets, daily range): BP systolic 77–148; BP diastolic 39–101
--- NOTE | 2019-10-15 02:35 | NUR ---
ASSUMED PATIENT CARE AT 1900. ASSESSMENTS COMPLETED CHARTED. CARDIAC MONITORING IN PLACE. BED LOCKED AND IN LOWEST POSITION. PATIENT REPORT AND HANDOFF GIVEN TO ELSA CUNHA.
[2019-10-15 04:11] LABS: ABSOLUTE LYMPHOCYTES 0.5 thou/uL (0.8-5.3); ABSOLUTE MONOCYTES 0.4 thou/uL (0.0-1.2); ABSOLUTE NEUTROPHILS 8.8 thou/uL (1.6-8.1); BASOPHILS 0.3 %; HEMATOCRIT 33.8 % (42.0-52.0); HEMOGLOBIN 11.6 gm/dL (14.0-18.0); MCH 31.6 pg (26.0-34.0); MCHC 34.5 g/dL (28.0-37.0); MCV 91.8 fL (80.0-100.0); MONOCYTES 4.4 %; MPV 8.1 fl. (7.2-11.1); NUCLEATED RBCS 0 /100WBC; PLATELET COUNT* 333 thou/uL (150-400); POLYS 90.3 %; RBC 3.68 mil/uL (4.50-6.00); RDW-CV 14.6 % (10.5-14.5); WBC 9.7 thou/uL (4.0-11.0)
[2019-10-15 04:21] LABS: CALCIUM 8.3 mg/dL (8.5-10.1); CREATININE 1.1 mg/dL (0.6-1.3); MAGNESIUM 1.9 mg/dL (1.8-2.4); POTASSIUM 4.2 mmol/L (3.5-5.1)
--- NOTE | 2019-10-15 07:30 | NUR ---
ASSUMED PT CARE AT 0000. FENTANYL GTT OFF AT 0500, LEAVING ONLY PROPOFOL, PER DR WEEKS REQUEST IN PREPARATION FOR TTT THIS AM. PT TURNED Q2HR. SSI ADVANCED TO HIGH DOSE REGIMEN PER PROTOCOL.
[2019-10-15 09:51] LABS: BE -5.4 mmol/L (-2 to +3); PCO2 31.9 mmHg (35.0-45.0); pH 7.384 (7.340-7.450)
[2019-10-15 09:53] LABS: PO2 162.5 mmHg (75.0-100.0)
--- NOTE | 2019-10-15 11:50 | NUR ---
ICU rounds: Pt extubated today, not able to follow commands. Dispo pending.
--- NOTE | 2019-10-15 16:49 | NUR ---
ASSUMED CARE OF PT AROUND 0730 THIS AM. REFER TO ASSESSMENTS. PT DID WELL WITH WEANING TRIAL THIS AM AND ABLE TO BE EXTUBATED. TOLERATING 1.5L O2/NC TODAY. PT SAYING MOSTLY INCOMPREHENSIBLE SOUNDS TODAY. ATTEMPTED TO HAVE ST EVAL FOR SWALLOWING BUT PT DID NOT DO WELL AND ST RECOMMENDS NPO AT THIS TIME. PT SR WITH PAC'S. IVF INFUSING WITHOUT DIFFICULTY. NO OTHER CONCERNS AT THIS TIME. CLWR. WCTM.
[2019-10-16] VITALS (16 sets, daily range): BP systolic 121–162; BP diastolic 54–79
[2019-10-16 09:21] LABS: ABSOLUTE LYMPHOCYTES 0.7 thou/uL (0.8-5.3); ABSOLUTE MONOCYTES 0.4 thou/uL (0.0-1.2); ABSOLUTE NEUTROPHILS 6.3 thou/uL (1.6-8.1); BASOPHILS 0.2 %; HEMATOCRIT 31.9 % (42.0-52.0); HEMOGLOBIN 10.9 gm/dL (14.0-18.0); LYMPHOCYTES 9.3 %; MCH 31.7 pg (26.0-34.0); MCHC 34.2 g/dL (28.0-37.0); MCV 92.7 fL (80.0-100.0); MONOCYTES 5.7 %; MPV 8.6 fl. (7.2-11.1); NUCLEATED RBCS 0 /100WBC; PLATELET COUNT* 282 thou/uL (150-400); POLYS 84.8 %; RBC 3.44 mil/uL (4.50-6.00); RDW-CV 14.3 % (10.5-14.5); WBC 7.4 thou/uL (4.0-11.0)
[2019-10-16 09:26] LABS: CALCIUM 7.8 mg/dL (8.5-10.1); CREATININE 0.8 mg/dL (0.6-1.3); MAGNESIUM 1.8 mg/dL (1.8-2.4); POTASSIUM 3.4 mmol/L (3.5-5.1)
--- NOTE | 2019-10-16 12:27 | NUR ---
ICU rounds: Tele status. Continued confusion, but able to answer some questions appropriately. Therapy evals pending. Per nurse, Pt was max assist to try and get up. Rehab consult pending.
--- NOTE | 2019-10-16 18:54 | NUR ---
PT OUT OF BED WITH MAX ASSIST x2, SAT IN A CHAIR FOR FEW HOURS. ALERT BUT CONFUSED. INSULIN PER PROTOCOL. REFUSES TO HAVE ANYTHING ORAL. VSS. CENTRAL LINE OUT PER DR VAZQUEZ'S ORDER. IV ESTABLISHED AT LT HAND, 20G. NS CONTD AT 50 MLS/HR. POTASSIUM REPLACED PER ELECTROLYTE PROTOCOL.
[2019-10-17] VITALS (7 sets, daily range): BP systolic 139–165; BP diastolic 63–71
--- NOTE | 2019-10-17 05:00 | NUR ---
ASSUMED CARE AT 1900H, ON RA AND TOLERATED. PT WAS CONFUSED BUT NOT RESTLESS. ORAL MEDS TOLERATED PLUS APPLE SAUCE WITH ASPIRATION PRECAUTION. AT MIDNIGHT, BS WAS 33 AND TOLD ME HE FEELS WEAK, D50% 25GM GIVEN. BS CORRECTED AND FELT MORE BETTER. NO DISTRESS NOTED. STILL CONFUSED AND REFUSED SOME TURN AND TOPICAL OINMENT ON HIS BACK. CONTINUE MONITORING AND TOWARD GOALS.
[2019-10-17 05:08] LABS: CALCIUM 8.1 mg/dL (8.5-10.1); CREATININE 0.8 mg/dL (0.6-1.3); POTASSIUM 3.6 mmol/L (3.5-5.1)
--- NOTE | 2019-10-17 15:48 | NUR ---
ASSESSMENT CHARTED. VSS. UP WITH 2 ASSIST TO BEDSIDE COMMODE AND CHAIR. NO COMPLAINTS OF PAIN. PATIENT IS NOT EATING ANYTHING EXCEPT A FEW SIPS/BITES WITH MEDICATION. NO OTHER EVENTS DURING THIS SHIFT. PATIENT TO TRANSFER TO ROOM 304.
--- NOTE | 2019-10-17 17:04 | NUR ---
ICU rounds: Pt more A&O, some confusion. Med/surg status. Therapies to see today. Rehab consult pending.
--- NOTE | 2019-10-17 17:41 | NUR ---
REPORT GIVEN TO 3W NURSE. PT TRANSFERED BY CHAIR AT 9784
--- NOTE | 2019-10-17 19:54 | NUR ---
PATIENT ARRIVED TO UNIT VIA RECLINER AT APROXIMATELY 1745. PATIENT DENIED PAIN OR NAUSEA. IVF INFUSING WITHOUT DIFFICULTY. HAS ROSS CATHETER PATENT WITH CLEAR YELLOW URINE. ASSESSMENT CHARTED. CALL LIGHT WITHIN REACH. FALL PRECAUTIONS IN PLACE, CHAIR ALARM ON.
[2019-10-18 05:01] LABS: ABSOLUTE EOSINOPHILS 0.1 thou/uL (0.0-0.7); ABSOLUTE LYMPHOCYTES 1.6 thou/uL (0.8-5.3); ABSOLUTE MONOCYTES 0.8 thou/uL (0.0-1.2); ABSOLUTE NEUTROPHILS 3.9 thou/uL (1.6-8.1); BASOPHILS 0.3 %; EOSINOPHILS 0.9 %; HEMATOCRIT 34.6 % (42.0-52.0); HEMOGLOBIN 12.1 gm/dL (14.0-18.0); LYMPHOCYTES 24.9 %; MCH 31.7 pg (26.0-34.0); MCHC 34.9 g/dL (28.0-37.0); MONOCYTES 12.9 %; MPV 8.1 fl. (7.2-11.1); NUCLEATED RBCS 0 /100WBC; PLATELET COUNT* 329 thou/uL (150-400); RBC 3.81 mil/uL (4.50-6.00); RDW-CV 13.6 % (10.5-14.5); WBC 6.4 thou/uL (4.0-11.0)
[2019-10-18 05:07] LABS: CALCIUM 7.9 mg/dL (8.5-10.1); CREATININE 0.7 mg/dL (0.6-1.3); MAGNESIUM 1.9 mg/dL (1.8-2.4)
--- NOTE | 2019-10-18 05:27 | NUR ---
PATIENT ALERT BUT DOES NOT COMMUNICATE NEEDS WELL AND FORGETFUL. DID NOT REPORT ANY PAIN OR APPEAR TO BE IN ANY DISCOMFORT. ROSS STILL IN PLACE. FALL PRECAUTIONS IN PLACE. PATIENT UP WITH ASSIST X2 TO COMMODE. REFUSED SOME MEDICATIONS. RECEIVED ALL ABX AND INSULIN. WILL CONTINUE TO MONITOR.
[2019-10-18 05:55] LABS: POTASSIUM 2.5 mmol/L (3.5-5.1)
--- NOTE | 2019-10-18 05:56 | NUR ---
ABDOMEN IS DISTENDED/PROTRUDING IN MID SECTION
--- NOTE | 2019-10-18 06:37 | NUR ---
GLUCOSE CHECK AT 0015 WAS 255. GIVEN 21 UNITS LISPRO SCHEDULED. GLUCOSE CHECK 0555 WAS BELOW 29. GIVEN 25MG DEXTROSE IV PUSH. RECHECK OF GLUCOSE AT [address] JOYCE WAS NOTIFIED PER PROTOCOL VIA [employer] AHM[employer]I ANY AT 0630.
[2019-10-18 07:53] VITALS: BP 136/60
[2019-10-18 15:30] VITALS: BP 149/73
--- NOTE | 2019-10-18 17:01 | NUR ---
Patient has been awake all day. He is a fall risk and does try to get OOB without assistance. Fall precautions have been maintained all day. He has been up out of bed x 3 today. He does turn self in the bed. He does answer questions approp. He is alert and oriented to self only. His appetite has been very poor today. I attempted to feed him meals today and he would not eat. Potassium IVPB's continue to infuse via pump and he is tolerating it well. He has been denying pain all day and denies any needs or wants.
[2019-10-18 20:30] VITALS: BP 135/65
--- NOTE | 2019-10-19 06:41 | NUR ---
Oriented x 2 and forgetful. At start of shift he was impulsive and getting out of bed. He did settle in and sleep later. His rt forearm IV is patent. He did recieve IV potassium 20 meq last evening and K+ was rechecked and it was in normal range. He does have L sided weakness and LLE has some edema. He did say that his bilat knees and lower extremities hurt him and his Volteran gel was applied there. He did have tylenol at bedtime for slight temp and discomfort. He has slept well.
[2019-10-19 09:32] VITALS: BP 124/87
--- NOTE | 2019-10-19 09:42 | NUR ---
PATIENT HAS BEEN TRYING TO CLIMB OUT OF BED AND OR THE RECLINER SINCE 0710 THIS AM. HE IS A HIGH FALL RISK AND FALL PRECAUTIONS HAVE BEEN MAINTAINED. HE REFUSED HIS ASSESSMENT AND VITAL SIGNS UNTIL NOW. HE ATE A SMALL AMOUNT OF AM MEAL AND TALKED WITH HIS ON THE PHONE. I DID NOTIFY THE LOCOMOTIVE OPERATOR THAT HE IS TRYING TO GET UP FREQUENTLY AND HE IS SENDING A SITTER UP AT 1100.
--- NOTE | 2019-10-19 10:11 | NUR ---
PATIENT BACK IN THE BED AT THIS TIME. HE CONTINUES TO WANT UP IN THE CHAIR AND THEN BACK TO THE BED. I TALKED WITH DR JOYCE REGUAMARIANAING HIS Q6 HOUR SLIDING SCALE INSULIN. I TOLD HER THAT I THOUGHT THIS ORDER WAS FROM HIS STAY IN THE ICU AND THAT I FEEL LIKE IT IS JUST TOO MUCH INSULIN FOR HIM. SHE IS GOING TO REVIEW THE ORDERS AND MAKE CHANGES IF APPROPRIATE.
--- NOTE | 2019-10-19 12:46 | NUR ---
CALLED PATIENTS SHALOM SIDDIQUI AND GAVE HER AN UPDATE ON PATIENTS CONDITION. SHE STATED THAT SHE WAS GOING TO BRING HIS LEG BRACES AND SHOES UP HERE SO WE COULD PUT THEM ON HIM IF HE GETS UP. I INFORMED HER TO DROP THEM OFF AT THE EMERGENCY DEPARTMENT.
--- NOTE | 2019-10-19 13:05 | NUR ---
I HELD THE INSULIN BECAUSE PATIENT DID NOT EAT ANY LUNCH.
[2019-10-19 16:00] VITALS: BP 163/71
--- NOTE | 2019-10-19 17:04 | NUR ---
PATIENT WAS AWAKE MOST OF THE DAY. HE GOT UP OOB TO THE CHAIR X 2 TODAY AND TOLERATED IT WELL. FALL PRECAUTIONS WERE MAINTAINED AND HE FREQUENTLY TRIED TO CLIMB OUT OF BED AND OVER THE RAILS AND GET UP OUT OF THE CHAIR ALSO. WE DID GET A SITTER AT 1100 AND SHE HAS BEEN WITH HIM TO KEEP HIM SAFE. HE DID NOT EAT BREAKFAST OR LUNCH TODAY. HE DENIES ANY PAIN.
[2019-10-19 20:30] VITALS: BP 165/74
[2019-10-20 04:07] LABS: GLYCOHEMOGLOBIN (HGB A1C) 7.2 % (4.8-5.6)
[2019-10-20 05:00] LABS: HEMATOCRIT 34.2 % (42.0-52.0); HEMOGLOBIN 11.9 gm/dL (14.0-18.0); MCH 31.9 pg (26.0-34.0); MCHC 34.7 g/dL (28.0-37.0); MPV 8.9 fl. (7.2-11.1); RBC 3.72 mil/uL (4.50-6.00); RDW-CV 13.7 % (10.5-14.5); WBC 5.2 thou/uL (4.0-11.0)
--- NOTE | 2019-10-20 05:13 | NUR ---
Oriented x 1-2, he had a sitter for the first part of the shift but then he was sleeping and didn't require a sitter. This am he began to get impulsive and he asked for his blood sugar to be checked it was 60,he had an apple juice and now he is sleeping again. I did not give his bedtime lantus last evening his blood was 82 at bedtime.
[2019-10-20 05:21] LABS: ALBUMIN 2.2 g/dL (3.4-5.0); CALCIUM 8.1 mg/dL (8.5-10.1); CREATININE 0.6 mg/dL (0.6-1.3); MAGNESIUM 1.8 mg/dL (1.8-2.4)
[2019-10-20 05:44] LABS: POTASSIUM 2.9 mmol/L (3.5-5.1)
[2019-10-20 07:30] VITALS: BP 148/72
--- NOTE | 2019-10-20 12:38 | NUR ---
SW continuing to follow. Pt pending readiness to dc to rehab or SNF.
[2019-10-20 15:47] VITALS: BP 160/84
--- NOTE | 2019-10-20 17:03 | NUR ---
MRI CALLED ME TO HAVE ME CONTACT PATIENTS TO SEE IF SHE HAS ANY INFORMATION ON PATIENTS PENILE IMPLANT. I DID CALL AND TALK WITH HER ABOUT IT AND SHE HAD NO INFORMATION. SHE STATED "I'M NOT SURE WHEN HE HAD THAT BUT I THINK IT WAS AROUND 1989 BUT WE DONT HAVE ANY CARD OR ANYTHING." SHE DID NOT REMEMBER DETAILS OF THE SURGERY.
--- NOTE | 2019-10-20 17:11 | NUR ---
PATIENT HAS BEEN UP IN THE CHAIR ALOT TODAY AND TOLERATED IT WELL. HE GOT UP AND AMBULATED WITH ASSISTANCE TO THE BATHROOM. HE DID HAVE SOME DISCOMFORT IN HIS LEGS THIS AM BUT THE TYLENOL RELEIVED IT. HE HAS A ROSS WITH GOOD OUTPUT AND CATH CARE WAS PREFORMED. HE IS A HIGH FALL RISK AND FALL PRECAUTIONS WERE MAINTAINED TODAY AND HE HAD A PERSONAL SITTER MOST OF THE DAY BECAUSE HE TRIES TO CLIMB OVER THE RAILS AND GET OUT OF THE CHAIR TO WALK WITHOUT ASSISTANCE. STRICT FALL PRECAUTIONS ARE MAINTAINED AND BED AND CHAIR ALARMS ARE ON AT ALL TIMES. HE DID HAVE A SMALL BM TODAY.
--- NOTE | 2019-10-20 17:23 | NUR ---
I DID TALK WITH PATIENTS TODAY AND UPDATED HER ON HIS CONDITION.
--- NOTE | 2019-10-20 18:46 | EEG ---
[address] [address] EEG STUDY REPORT Name: ARTURCOURTNEY Lynn Room: [address] IN M.R.#: [id number] Admission: 10/02/19 Attend Phys: Anthony Oden MD Discharge: Date of : 47 Report #: [id number] THIS REPORT FOR: //name// CC: Anthony Oden [facility] unknown [place] [facility] DATE OF SERVICE: 10/07/2019 This patient is being evaluated for altered mental status. EEG was done by placing the electrode by standard 10-20 system of electrode placement. Both referential and sequential montages were used for recording. Background activity in this patient's EEG is about 7-8 Hz and 30 microvolts. It is a symmetrical activity. Photic stimulation was unremarkable. A lot of artifact was noticed during this EEG. IMPRESSION: This is an abnormal EEG because it is slow and poorly formed. That is a nonspecific abnormality, which can occur with dementia, encephalopathy, effect of psychotropic medication, etc. Clinical correlation is recommended. <ELECTRONICALLY SIGNED> By: Nicho Ann MD 10/20/19 1846 [id number] Ann MD /nt
--- NOTE | 2019-10-20 18:46 | EEG ---
[address] [address] EEG STUDY REPORT Name: ARTURCOURTNEY Lynn Room: [address] IN M.R.#: [id number] Admission: 10/02/19 Attend Phys: Anthony Oden MD Discharge: Date of : 47 Report #: [id number] THIS REPORT FOR: //name// CC: Anthony Oden [facility] unknown [place] [facility] DATE OF SERVICE: 10/14/2019 This patient is being evaluated for altered mental status. EEG was done to evaluate that further. EEG was done by placing the electrode by standard 10-20 system of electrode placement. Both referential and sequential montages were used for recording. Background activity in this patient's EEG is about 7 Hz and 30 microvolts. Photic stimulation is unremarkable. No active epileptiform activity was noticed during this record. IMPRESSION: This is a markedly abnormal EEG because it is disorganized and poorly formed. That is a nonspecific abnormality which can occur with encephalopathy, dementia, effect of psychotropic medication, etc. Clinical correlation is recommended. <ELECTRONICALLY SIGNED> By: Nicho Ann MD 10/20/19 1846 [id number] Ann MD /nt
--- NOTE | 2019-10-20 18:46 | EEG ---
[address] [address] EEG STUDY REPORT Name: COURTNEY SIDDIQUI Lynn Room: [address] IN M.R.#: [id number] Admission: 10/02/19 Attend Phys: Anthony Oden MD Discharge: Date of : 47 Report #: [id number] THIS REPORT FOR: //name// CC: Anthony Oden [facility] unknown [place] [facility] DATE OF SERVICE: 10/07/2019 This patient is being evaluated for altered mental status. This patient was not able to cooperate much. EEG is masked by a lot of artifact. It does appear to be showing a background activity of about 7 Hz and 30 microvolt. Photic stimulation is unremarkable. He may be drowsy during part of this EEG that is associated with bilateral slowing. Throughout the record, no active epileptiform activity was noticed. IMPRESSION: This patient's EEG is abnormal because it is intermixed with theta range slowing on both sides. That is a nonspecific finding, which can occur with encephalopathy, effect of psychotropic medication, dementia, etc. Clinical correlation is recommended. <ELECTRONICALLY SIGNED> By: Nicho Ann MD 10/20/19 1846 [id number] Ann MD /nt
[2019-10-20 20:20] VITALS: BP 163/77
--- NOTE | 2019-10-21 06:49 | NUR ---
PATIENT SLEPT OFF AND ON DURING THE NIGHT. VSS ON RA. SITTER IN ROOM. MEDICATIONS GIVEN ORDERED AND CHARTED. IV IN LEFT FOREARM-NS @ 50ML/HR. ROSS TO DEPENDENT DRAINAGE WITH YELLLOW URINE OUTPUT. BLOOD SUGAR 95. FALL PRECAUTIONS IN PLACE AND HOURLY ROUNDS MADE. WILL CONTINUE WITH PLAN OF CARE AND NURSING TO MONITOR.
[2019-10-21 07:30] VITALS: BP 158/80
[2019-10-21 16:00] VITALS: BP 144/62
--- NOTE | 2019-10-21 16:50 | NUR ---
SW continuing to follow and dc is pending acceptance which is not possible yet due to pt confusion and 1:1 status. Pending tele psych and possible [facility] placement. SW to gather referral and fax to [facility] and assist with finalizing safe dc plan.
--- NOTE | 2019-10-21 19:14 | NUR ---
ASSUMED CARE OF PATIENT AT APPROX 0730. ALERT BUT CONFUSED BUT EASILY REORIENTED. NO COMPLAINT OF PAIN THIS SHIFT. PATIENT IMPULSIVE AND ATTEMPTING TO GET OUT OF BED TODAY. PATIENT UP WITH ONE TO BEDSIDE COMMODE. FLUIDS INFUSED ORDERED. FALL PRECAUTIONS IN PLACE. CALL LIGHT WITHIN REACH. HOURLY ROUNDS COMPLETED. WILL CONTINUE WITH PLAN OF CARE.
[2019-10-21 20:00] VITALS: BP 170/51
--- NOTE | 2019-10-22 06:40 | NUR ---
PATIENT HAS RESTED WELL THROUGHOUT THE NIGHT. VSS ON RA. PATIENT REFUSED ORAL NIGHT TIME MEDS. ROSS TO DEPENDENT DRAINAGE WITH YELLOW URINE OUTPUT. IV IN LEFT FOREARM-NS @ 50ML/HR. FALL PRECAUTIONS IN PLACE AND HOURLY ROUNDS MADE. WILL CONTINUE WITH PLAN OF CARE AND NURSING TO MONITOR.
[2019-10-22 08:11] VITALS: BP 141/71
[2019-10-22 16:00] VITALS: BP 121/67
--- NOTE | 2019-10-22 16:18 | NUR ---
SAMEERA spoke with Dr Richmond about tele psych eval and no indication for [facility] so next recommendation is for SNF. SAMEERA spoke with pt who was hopeful for pt to be able to dc home but also said she thought he might go to [facility] or rehab at [facility] not indicating that pt is appropriate for inpt rehab at this time. SW faxed referral to [facility] for possible SNF options and will continue to follow to assist with finalizing safe dc plan.
--- NOTE | 2019-10-22 17:59 | NUR ---
PT A&OxSELF. IV PATENT. CODY PATENT. EATING MINIMAL AMOUT OF MEALS, 20-30%. REFUSING MOST MEDICATIONS. UP WITH 1, MIN ASSIST. FALL PRECAUTIONS IN PLACE. CALL LIGHT WITHIN REACH. WILL CONTINUE TO MONITOR.
[2019-10-22 20:00] VITALS: BP 171/95
[2019-10-23 08:25] VITALS: BP 145/55
--- NOTE | 2019-10-23 13:08 | NUR ---
PT BS IS 50, STABLE AND ASYMPTOMATIC. PT REFUSING TO EAT OR DRINK ANYTHING FOR STAFF, STATES "I DON'T NEED IT". 25ML OF DEXTROSE GIVEN PER PROTOCAL, WILL RECHECK BS IN 30 MINUTES.
--- NOTE | 2019-10-23 15:09 | NUR ---
SW followed up with admissions at [facility] to check on status of referral as pt is ready to dc, referral still pending an answer as they are discussing with DON and client experience administrator to determine if they are able to meet pt needs. SW to continue to follow to assist with finalizing safe dc plan/placement.
[2019-10-23 16:00] VITALS: BP 149/87
--- NOTE | 2019-10-23 16:38 | NUR ---
PT A&OxSELF. IV PATENT, FLUIDS INFUSING. REFUSING TO EAT OR DRINK ANYTHING AT THIS POINT DURING THE DAY. BLOOD SUGAR CAME UP TO 106 AFTER 25ML OF DEXTROSE. UP WITH STB ASSIST USING WALKER. FALL PRECAUTIONS IN PLACE. CALL LIGHT WITHIN REACH. WILL CONTINUE TO MONITOR.
[2019-10-23 20:00] VITALS: BP 153/74
--- NOTE | 2019-10-24 04:17 | NUR ---
PT A&O X1. MEDS GIVEN ORDERED. RESTING IN CHAIR THEN SLEEPIN IN BED THROUGH THE NIGHT. UP WITH MAX ASSIST. PT DENIED PAIN. ROSS IN PLACE. IVF INFUSING. WILL CONTINUE TO MONITOR.
[2019-10-24 07:55] VITALS: BP 133/68
--- NOTE | 2019-10-24 08:55 | NUR ---
PT GLUCOSE <30 AT AM CHECK, ASYMPTOMATIC. DIABETIC MEDS HELD, 25MG OF DEXTROSE GIVEN IV. RECHECKED GLUCOSE 30MIN AFTER GIVEN DEXTROSE, 127. DR BURDICK NOTIFIED.
--- NOTE | 2019-10-24 11:53 | NUR ---
SAMEERA followed up with Bhavna in admissions at [facility] to check on status of referral and now facility wants another covid test since pt test was 2 weeks ago. SAMEERA to discuss with Dr St. SAMEERA faxed another referral to [facility] to have another possible option since [facility] is not able to accept today and making other requirements that will prolong stay. SAMEERA to continue to follow to assist with safe dc planning pending placement acceptance.
[2019-10-24 16:00] VITALS: BP 126/73
--- NOTE | 2019-10-24 18:03 | NUR ---
PT A&OxSELF, PLEASANT. IV PATENT, FLUIDS INFUSING. UP WITH 1 TO CAMMODE. ATE 50% OF DINNER. INSULIN DC DUE TO LOWER GLUCOSE LEVELS. REFUSED TO TAKE ORAL MEDS, STATES "I DONT NEED THEM". FALL PRECAUTIONS IN PLACE. CALL LIGHT WITHIN REACH. WILL CONTINUE TO MONITOR.
[2019-10-24 20:26] VITALS: BP 166/82
--- NOTE | 2019-10-25 04:55 | NUR ---
PATIENT ATTEMPTED TO HAVE BM NOT SUCCESSFUL. ALERT AND ORIENTED X 1. NEEDS EXTRA TIME TO GET UP AND TO ANSWER QUESTIONS. UP WITH ASSIST X 1. ROSS STILL IN PLACE. NOT EATING OR DRINKING ANYTHING. REFUSED ALL MEDS THIS SHIFT. SLEPT WELL.
[2019-10-25 05:04] LABS: HEMOGLOBIN 11.9 gm/dL (14.0-18.0); WBC 4.7 thou/uL (4.0-11.0)
[2019-10-25 05:07] LABS: HEMATOCRIT 34.2 % (42.0-52.0); MCH 32.5 pg (26.0-34.0); MCHC 34.8 g/dL (28.0-37.0); MCV 93.4 fL (80.0-100.0); RBC 3.66 mil/uL (4.50-6.00); RDW-CV 15.1 % (10.5-14.5)
[2019-10-25 05:24] LABS: ALBUMIN 2.2 g/dL (3.4-5.0); CALCIUM 8.9 mg/dL (8.5-10.1); CREATININE 0.8 mg/dL (0.6-1.3); POTASSIUM 3.8 mmol/L (3.5-5.1); TOTAL BILIRUBIN 0.4 mg/dL (<0.1-1.0); TOTAL PROTEIN 5.1 g/dL (6.4-8.2)
[2019-10-25 08:00] VITALS: BP 142/76
[2019-10-25 15:36] VITALS: BP 145/73
--- NOTE | 2019-10-25 17:04 | NUR ---
ASSUMED CARE OF PATIENT AT APPROX 0730. ALERT BUT VERY CONFUSED. ASSESSMENT COMPLETED AND CHARTED. VSS ON ROOM AIR. FLUIDS INFUSED ORDERED. PAIN MANAGED WITH VOLTAREN GEL AND TYLENOL. PATIENT P WITH ASSIST TO THE CHAIR AND BEDSIDE COMMODE. PATIENT HAD CLEAR, GEL- LIKE LEAKAGE FROM RECTUM WHILE AMBULATING THIS AFTERNOON AND IN BEDSIDE COMMODE. DR BURDICK NOTIFIED AND ORDERS FOR STOOL SAMPLE TO BE COLLECTED UPON NEXT EVENT AND SENT TO LAB. NO OTHER COMPLAINTS THIS SHIFT. FALL PRECAUTIONS IN PLACE. CALL LIGHT WITHIN REACH. HOURLY ROUNDS COMPLETED. WILL CONTINUE WITH PLAN OF CARE.
[2019-10-25 19:47] VITALS: BP 139/64
--- NOTE | 2019-10-26 05:43 | NUR ---
PATIENT SLEPT WELL DURING NIGHT, TOOK MEDS SCHEDULED DID NOT WANT EYE DROPS. NO APPARENT PAIN OR DISCOMFORT. BED ALARM AND CHAIR ALARM USED. PATIENT DOES NOT USE CALL LIGHT TO GET UP. ROSS STILL IN PLACE IV FLUIDS AT 50 MLS. WILL CONTINUE TO MONITOR.
[2019-10-26 07:30] VITALS: BP 130/82
--- NOTE | 2019-10-26 07:48 | CON ---
[address] [address] CONSULTATION Name: ZURIJohnCOURTNEY Lynn Room: [address] IN M.R.#: [id number] Admission: 10/02/19 Attend Phys: Anthony Oden MD Discharge: Date of : 47 Report #: [id number] THIS REPORT FOR: //name// cc: [facility] - [facility] physician unknown [facility] physician unknown ~ THIS REPORT FOR: //name// CC: Anthony Oden [facility] DATE OF SERVICE: 10/12/2019 NEPHROLOGY CONSULTATION CONSULTING PHYSICIAN: Rome Zamora MD REASON FOR NEPHROLOGY CONSULTATION: Acute kidney injury. REASON FOR ADMISSION: Altered mental status. HISTORY OF PRESENT ILLNESS: This is a 74-year-old male who was initially brought in on 10/01 when the patient was found unresponsive at home by the patient's and he was found to be hypoglycemic. His blood sugar was in 30s. He has a history of hypertension and diabetes. They tried to give him D10 water, but he did not wake up, so he had to be intubated for airway protection. He was found to have bilateral dense consolidations in his lungs and he was treated with that. ID followed him for that. His creatinine was 0.8 at that time. He was eventually extubated, came to the floor yesterday where he became more short of breath and he was also found to be in DKA. His creatinine was found to be 1.8 yesterday, which was acute kidney injury for him. He was also found to be hypotensive last night, 88/53. He was intubated and not really sure why that was done. He is in the ICU right now. His blood pressure is better with IV hydration and he is being treated for DKA. His creatinine is also slowly improving, it is 1.5 today. His white count also omer to 23,000 yesterday and is down to 18,000 today. Nephrology has been consulted for acute kidney injury. His anion gap metabolic acidosis was because of DKA and that has been improving. ALLERGIES: LISINOPRIL AND SIMVASTATIN. REVIEW OF SYSTEMS: Not able to obtain because he is intubated and sedated. PAST MEDICAL AND SURGICAL HISTORY: Hypertension, diabetes, [place] [address] CONSULTATION Name: COURTNEY SIDDIQUI Room: [address] IN [facility].#: [id number] Admission: 10/02/19 Attend Phys: Anthony Oden MD Discharge: Date of : 47 Report #: [id number] FAMILY HISTORY: We cannot obtain. SOCIAL HISTORY: Lives at home with his and he uses cigarettes sometimes. 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 MEDICATIONS AT HOME: I actually did not have a list available with me indicating what medications he takes at home. PHYSICAL EXAMINATION: VITAL SIGNS: Blood pressure is 119/60, pulse rate was 68, respiratory rate was 30, pulse ox was 100%. He is on 40% FiO2 on the ventilator. Temperature was 37.3. GENERAL: He is intubated and sedated. HEAD AND EYES: Atraumatic, normocephalic. EARS, NOSE AND THROAT: Normal ears and nose. Mucous membranes are ____. He has ET tube in place. NECK: No JVD. CHEST: Bilaterally diminished breath sounds, but no crackles or wheezing. CARDIOVASCULAR: S1, S2 normal. No murmurs. ABDOMEN: Soft, nondistended. Bowel sounds decreased. EXTREMITIES: Lower extremities, there is no lower extremity edema. NEUROLOGICAL FUNCTION: He is currently sedated. PSYCHIATRIC: Cannot obtain right now. LABORATORY DATA: WBC is 18.1, hemoglobin is 12.2. His sodium was 145, potassium was 4.6, bicarbonate was 15. His creatinine was 1.5, BUN was 24 and his pH was 7.46, CO2 of less than 17, and 128 oxygen and rest of the labs were reviewed. IMAGING: Chest x-ray, abdominal and pelvic CT scan and other imaging studies were reviewed. ASSESSMENT: 1. Acute kidney injury, which is in the setting of intravascular volume depletion, hypotension and diabetic ketoacidosis, creatinine went from 0.8 to 1.8 and it is improving now as he is receiving IV fluids. Abdominal CT scan done on 10/11/2019 showed no hydronephrosis but bilateral nonobstructive kidney stones, largest being 8 mm in size. UA was reviewed and that did look contaminated with few granular casts in it. 2. Leukocytosis in the setting of bilateral pneumonia, being treated by ID. 3. Diabetic ketoacidosis, being treated by primary team. 4. Anion gap metabolic acidosis with non-gap acidosis. This is in the setting of diabetic ketoacidosis and acute renal insufficiency, it has been improving. 5. Hypophosphatemia. 6. Mild hyperkalemia, which is now improving. [address] [address] CONSULTATION Name: COURTNEY SIDDIQUI Room: [address] IN [place].#: [id number] Admission: 10/02/19 Attend Phys: Anthony Oden MD Discharge: Date of : 47 Report #: [id number] 7. History of hypertension. Blood pressure has been running towards the lower side, but is better now with IV fluids, not on any blood pressure medications. PLAN: 1. Continue IV hydration. He is right now getting D5 half normal saline with potassium phosphate as well as potassium chloride in it, please keep monitoring basic metabolic panel serially and let the potassium start rising ____ output declines, then potassium will have to be removed from the IV fluids. 2. I have ordered a CPK. 3. Treatment of pneumonia as per primary team. 4. Creatinine so far is improving. 5. Try to maintain a MAP of around 65-70. Avoid nephrotoxic agents. Thank you for this consultation. We will continue to follow with you. Discussed with the patient's nurse at bedside. <ELECTRONICALLY SIGNED> By: Priscila Sal MD 10/26/19 0748 [id number] Sal MD /nt
--- NOTE | 2019-10-26 19:30 | NUR ---
ASSUMED CARE OF PATIENT AT APPROX 0730. ALERT AND CONFUSED BUT EASILY REDIRECTED. PATIENT UP WITH ASSIST TO BEDSIDE COMMODE. FLUIDS INFUSED ORDERED THEN SALINE LOCKED. PATIENT HAVING CLEAR GEL-LIKE STOOLS, SAMPLE OBTAINED AND SENT TO LAB. NO COMPLAINTS OF PAIN THIS SHIFT. FALL PRECAUTIONS IN PLACE. CALL LIGHT WITHIN REACH. HOURLY ROUNDS COMPLETED. WILL CONTINUE WITH PLAN OF .
[2019-10-26 20:59] VITALS: BP 129/53
--- NOTE | 2019-10-27 05:16 | NUR ---
PATIENT IMPULSIVE WANTS TO GET UP TO CHAIR OR SIT UP IN BED. KEPT ALARMS ON. WILL NOT USE CALL LIGHT. CAN USE COMMODE WITH ASSISTANCE. REFUSED EYE DROPS BUT TOOK ALL OTHER MEDS. INCONTINENT OF URINE. ALERT TO SELF. DOES NOT IMMEDIATLEY VERBALIZE NEEDS, MUST BE ASKED SEVERAL TIMES. WAITING ON PLACEMENT. BLOOD GLUCOSE WAS [address] MCALLISTER CALLED FOR INSULIN ORDERS AND TO START LOW DOSE SLIDING SCALE INSULIN TODAY. WILL CONTINUE TO FOLLOW PLAN OF CARE.
[2019-10-27 07:20] VITALS: BP 126/62
[2019-10-27 07:48] LABS: HEMATOCRIT 36.7 % (42.0-52.0); MCH 31.3 pg (26.0-34.0); MCHC 32.8 g/dL (28.0-37.0); MCV 95.2 fL (80.0-100.0); MPV 8.6 fl. (7.2-11.1); RBC 3.86 mil/uL (4.50-6.00); RDW-CV 15.8 % (10.5-14.5); WBC 21.4 thou/uL (4.0-11.0)
[2019-10-27 08:04] LABS: ALBUMIN 2.8 g/dL (3.4-5.0); CALCIUM 8.5 mg/dL (8.5-10.1); CREATININE 1.3 mg/dL (0.6-1.3); POTASSIUM 4.5 mmol/L (3.5-5.1); TOTAL BILIRUBIN 0.5 mg/dL (<0.1-1.0); TOTAL PROTEIN 6.2 g/dL (6.4-8.2)
[2019-10-27 09:56] LABS: URINE BLOOD 2+ (Negative); URINE CLARITY CLEAR; URINE COLOR YELLOW; URINE GLUCOSE-RANDOM NEGATIVE (Negative); URINE LEUKOCYTES-REFLEX NEGATIVE (Negative); URINE NITRITE-REFLEX NEGATIVE (Negative); URINE PROTEIN TRACE (Negative); URINE SPECIFIC GRAVITY >= 1.030 (1.005-1.030); URINE UROBILINOGEN 0.2 E.U./dl (0.2-1.0)
[2019-10-27 09:58] LABS: ICTOTEST (BILI CONFIRMATORY) Negative (Negative); URINE BILIRUBIN 2+ (Negative); URINE KETONES 3+ (Negative)
[2019-10-27 10:04] LABS: BACTERIA-REFLEX 1-9 Few /HPF (None Seen); CASTS None Seen /LPF (None Seen); CRYSTALS None Seen /LPF (None Seen); MUCUS 4-6 Moderate strn/LPF (None Seen); SQUAMOUS 0-3 Few /LPF (0-3); URINE RBC 3-10 Few /HPF (0-2); URINE WBC-REFLEX 0-5 Rare /HPF (0-5)
--- NOTE | 2019-10-27 11:16 | NUR ---
CALLED PATIENTS TO GIVE HER AN UPDATE ON HIS CONDITION. SHE DID NOT HAVE ANY QUESTIONS AT THIS TIME.
[2019-10-27 16:33] VITALS: BP 143/59
--- NOTE | 2019-10-27 16:33 | NUR ---
SW called [facility] to follow up on status of referral to reconsider for SNF, admissions stated that even with behaviors better, they still will not accept with pt not wanting to eat or drink. SW to send covid test result to [facility] and discuss possibility again but their admissions not promising acceptance even with covid test result. SW discussed home options with pt and possible home with support and hospice services, pt still hopeful for snf but would consider other options if needed. SW discussed hospice agencies and reached out to [facility] who reviewed and would be able to accept and willing to discuss with pt/family if/when appropriate and pt ready to dc.
--- NOTE | 2019-10-27 17:14 | NUR ---
PATIENT RESTED WELL UNTIL PT CAME AND WOKE HIM UP. HE THEN BECAME AGGITATED AND WAS TRYING TO CLIMB OUT OF BED. HE REFUSED HIS MEDICATIONS THIS AM AND REFUSED TO GO DOWN FOR XRAY. I CONTACTED DR. VILLALOBOS AND LET HER KNOW AND SHE ORDERED A PORTABLE AND XRAY IS HERE NOW. HE IS CONFUSED AND IS ORIENTED TO SELF ONLY. HE IS A HIGH FALL RISK AND FALL PRECAUTIONS HAVE BEEN MAINTAINED. HE REFUSED TO EAT ANY BREAKFAST OR LUNCH AND WE ARE WAITING ON HIS SUPPER TRAY NOW. VSS HE HAS BEEN AFEBRILE TODAY BUT DID HAVE A HIGH WHITE BLOOD CELL COUNT THIS AM.
--- NOTE | 2019-10-27 18:35 | NUR ---
PATIENT TO THE FLOOR VIA CART TO ROOM 310. HE AMBULATED TO THE BED AND IS UP AD SUNITHA. HE AMBULATES TO THE BATHROOM. HE IS ALERT AND ORIENTED X 4. LIVES AT HOME ALONE AND STATES THAT HE GOT WHAT THE DOCTORS THINK WAS A SPIDER BITE APROX. 2 WEEKS AGO. HE NOW HAS CELLULITIS IN THE LEFT LOWER LEG FROM THIS. HE IS ON IV ANTIBIOTICS AND A REGULAR DIET. HE STATES THAT HE DOES NOT HAVE FAMILY HERE THEY ALL LIVE OUT OF TOWN. HE ALSO STATES THAT HIS CAR IS HERE SO THAT HE CAN DRIVE HIMSELF HOME WHEN HE GETS DISCHARGED. I ENCOURAGED HIM TO USE THE CALL LIGHT WHEN HE NEEDS TO GET UP. HE STATES "I REALLY DONT NEED ANY HELP TO GO TO THE BATHROOM. SIDE RAILS UP X 2 CALL LIGHT IN EASY REACH.
[2019-10-27 20:00] VITALS: BP 131/59
--- NOTE | 2019-10-28 05:25 | NUR ---
ASSUMED PT CARE AT APPROX 1930. PT IS AWAKE, ORIENTED TO SELF ONLY, CONFUSED AND IMPLULSIVE AT TIMES. ASSESSMENT DONE AND CHARTED. PT IS NOT IN ANY DISTRESS, NO DESATURATIONS NOTED ON ROOM AIR. NO ACUTE CHANGES THROUGH THE NIGHT. PT IS ABLE TO REST THROUGH THE NIGHT. CALL LIGHT WITHIN REACH. HOURLY ROUNDING DONE FOR PT SAFETY. HIGH FALL PRECAUTIONS IN PLACE.
[2019-10-28 07:15] VITALS: BP 151/99
[2019-10-28 09:10] LABS: HEMATOCRIT 34.3 % (42.0-52.0); HEMOGLOBIN 11.7 gm/dL (14.0-18.0); MCH 31.7 pg (26.0-34.0); MCHC 34.2 g/dL (28.0-37.0); MCV 92.8 fL (80.0-100.0); RBC 3.7 mil/uL (4.50-6.00); RDW-CV 15.8 % (10.5-14.5)
[2019-10-28 09:12] LABS: WBC 4.9 thou/uL (4.0-11.0)
[2019-10-28 09:43] LABS: ALBUMIN 2.6 g/dL (3.4-5.0); CALCIUM 8.7 mg/dL (8.5-10.1); CREATININE 1.3 mg/dL (0.6-1.3); POTASSIUM 3.7 mmol/L (3.5-5.1); TOTAL BILIRUBIN 0.4 mg/dL (<0.1-1.0); TOTAL PROTEIN 5.9 g/dL (6.4-8.2)
--- NOTE | 2019-10-28 11:48 | NUR ---
PATIENT IS NOT DOING WELL TODAY. HE IS LETHARGIC BUT I AM ABLE TO WAKE HIM. HE IS NOT EATING OR DRINKING SINCE YESTERDAY. I TALKED WITH DR. VILLALOBOS AND REQUESTED SOME MAINTENCE FLUIDS FOR HIM AND SHE DID PUT IN THE ORDER. HE IS ON IV ANTIBIOTICS FOR PNEUMONIA AT THIS TIME. PATIENT IS BEING TURNED EVERY 2 HOURS.
--- NOTE | 2019-10-28 14:19 | NUR ---
SW followed up with pt about dc planning and that pt may need a couple more days as Dr Quezada explained for abx because of new pneumonia. SW explained to that SNFs have denied thus far and possible dc plan could be home with hospice if Dr chesterems this appropriate at time of pt ready to dc. Pt understanding of pt wanting to come home but also wondering if pt will be able to walk. Pt is open to [facility] speaking with her about services and support available. SW to continue to follow to assist with safe dc planning.
[2019-10-28 16:00] VITALS: BP 150/72
--- NOTE | 2019-10-28 16:21 | NUR ---
PATIENT SLEPT MOST OF THE DAY AND SEEMED LETHARGIC. HE DID WAKE UP THIS AFTERNOON AND SPEECH THERAPY CAME AND HE ATE ICE CREAM AND DRANK JUICE WITHOUT DIFFICULTY. HE IS RESTING WELL AT THIS TIME HE STILL REFUSES TO TAKE PO MEDICATIONS OR DRINK WATER. I WILL WORK WITH HIM THIS EVENING TO TRY AND GET HIM TO EAT SUPPER. WE ARE TREATING HIS PNEUMONIA WITH IV ANTIBIOTICS AND I CALLED AND UPDATED HIS ON HIS CURRENT CONDITION. I ALSO CALLED HER AND LET COURTNEY TALK WITH HER PER HIS REQUEST. HE CONTINUES TO BE AFEBRILE AND HAS NO COUGH. HE IS A HIGH FALL RISH AND FALL PRECATIONS HAVE BEEN MAINTAINED. HE IS ALERT AND ORIENTED TO SELF ONLY. NO S/S OF ACUTE DISTRESS TODAY. HE HAS BEEN TURNED AND REPOSITIONED EVERY 2 HOURS. NO BOWEL MOVEMENT TODAY.
[2019-10-28 20:20] VITALS: BP 120/63
[2019-10-29 05:50] LABS: ALBUMIN 2.3 g/dL (3.4-5.0); CALCIUM 8.1 mg/dL (8.5-10.1); CREATININE 1.1 mg/dL (0.6-1.3); MAGNESIUM 1.8 mg/dL (1.8-2.4); POTASSIUM 3.4 mmol/L (3.5-5.1); TOTAL BILIRUBIN 0.6 mg/dL (<0.1-1.0); TOTAL PROTEIN 5.4 g/dL (6.4-8.2)
[2019-10-29 06:33] LABS: HEMATOCRIT 31.5 % (42.0-52.0); HEMOGLOBIN 10.9 gm/dL (14.0-18.0); MCH 32.1 pg (26.0-34.0); MCHC 34.5 g/dL (28.0-37.0); MCV 93.2 fL (80.0-100.0); MPV 8.6 fl. (7.2-11.1); RBC 3.38 mil/uL (4.50-6.00); RDW-CV 15.6 % (10.5-14.5); WBC 4.3 thou/uL (4.0-11.0)
--- NOTE | 2019-10-29 06:56 | NUR ---
PT SLEPT WELL THIS SHIFT. REFUSED TURNS. COOPERATIVE WITH MEDS. FALL PRECAUTION IN PLACE. CALL LIGHT WITHIN REACH. HOURLY ROUNDINGS MADE. WILL CONTINUE TO MONITOR.
[2019-10-29 07:15] VITALS: BP 159/82
[2019-10-29 09:00] VITALS: BP 147/67
--- NOTE | 2019-10-29 14:56 | NUR ---
SAMEERA called pt to follow up on dc planning. Possible dc home on Sunday as pt said that she will have people to help her and she is checking on a possible [facility] nurse to follow along with pt care. Pt open to speaking with [facility] hospice if that is appropriate at dc. SAMEERA informed Shabnam with [facility]. Pending how pt does with therapy to follow up, will determine needs for time of dc. SW to continue to follow to assist with safe dc planning.
[2019-10-29 16:28] VITALS: BP 151/71
--- NOTE | 2019-10-29 17:05 | NUR ---
PATIENT HAD A GREAT DAY TODAY. HE ATE A LITTLE AND DRANK SOME FLUIDS HE WAS UP IN THE CHAIR FOR A COUPLE OF HOURS AND DID NOT TRY TO GET UP AND WALK. HE WAS TALKING TO ME AND TAKING HIS ORAL MEDICATIONS. I DID FEED HIM BREAKFAST AND SOME OF HIS LUNCH AND THEN HE FED HIMSELF SOME AT LUNCH ALSO. ROSS IS STILL PRESENT CATH CARE PREFORMED ORDERED. HE IS A FALL RISK AND FALL PRECAUTIONS ARE BEING MAINTAINED. HE HAD A BEDBATH AND HIS LINENS WERE CHANGED. PHYSICAL THERAPY WAS IN TO WORK WITH HIM AND HE DID PARTICAPATE. THE SPRING REPAIRER HELPER HAND CALLED HIS TODAY TO UPDATE HER AND TOLD HER HE WAS DOING ALOT BETTER TODAY. NO DISTESS NOTED AND HE DENIED PAIN THIS SHIFT.
[2019-10-29 19:30] VITALS: BP 139/77
--- NOTE | 2019-10-29 21:33 | CON ---
[address] [address] CONSULTATION Name: COURTNEY SIDDIQUI Room: [address] IN M.R.#: [id number] Admission: 10/02/19 Attend Phys: Anthony Oden MD Discharge: Date of : 47 Report #: [id number] THIS REPORT FOR: //name// cc: [facility] - [facility] physician unknown [facility] physician unknown ~ THIS REPORT FOR: //name// CC: Anthony Oden [facility] DATE OF SERVICE: 10/05/2019 REASON FOR CONSULTATION: I was asked to evaluate concerning bilateral pulmonary infiltrates and encephalopathy. HISTORY OF PRESENT ILLNESS: A 74-year-old admitted on 10/02/2019 when he was found down at home unresponsive. He was hypoglycemic. His tried to give him some glucose products, but he began to choke. Brought in through the Emergency Room by EMS. He was intubated, placed on mechanical ventilation. He has had low-grade fever. He was subsequently extubated. I have no positive cultures to-date. No sputum culture was obtained. Blood cultures remained negative. He has continued to be confused, although level of alertness has improved. He was also diagnosed with fecal impaction. He has been stooling now. Diabetes is now under control. CT scan showed evidence of bilateral pulmonary infiltrates with basilar consolidation and ground-glass changes throughout. The patient was tried on tube feeding. He has subsequently pulled out his NG tube. He has indwelling Burciaga catheter. He has had no decubiti or rashes. His right IJ catheter in place. He has had low-grade temperature up to 101.3 degrees over the last 2 days. Currently, he has been afebrile. He has had good urine output. He has an indwelling Burciaga catheter. He is now on oxygen at 2 liters per nasal cannula. He had a tachycardic episode yesterday that is stabilized. No report of diarrhea. PAST MEDICAL HISTORY: Diabetes, hypertension. He has had spinal surgery with left-sided weakness. FAMILY HISTORY: No report of tuberculosis. SOCIAL HISTORY: Past smoker, no significant alcohol intake. Lives with his . REVIEW OF SYSTEMS: A 14-point review was negative other than what has been described above. ALLERGIES: LISINOPRIL, [place] [address] CONSULTATION Name: COURTNEY SIDDIQUI Room: [address] IN [facility]#: [id number] Admission: 10/02/19 Attend Phys: Anthony Oden MD Discharge: Date of : 47 Report #: [id number] MEDICATIONS: As noted with azithromycin and Zosyn at this point. PHYSICAL EXAMINATION: VITAL SIGNS: He is afebrile and hemodynamically stable. GENERAL: He was alert, but unable to follow commands. He did need assistance in rolling over in bed. He did pull out his NG tube. Has a right IJ catheter. He is in mittens. He does have left-sided weakness compared to the right. He had an indwelling Burciaga catheter with penile prosthesis. EYES: Without scleral icterus. MOUTH: Without mucositis. NECK: Supple. LUNGS: Coarse breath sounds in the bases bilaterally. HEART: Regular, without murmur. ABDOMEN: Soft and nontender with no hepatosplenomegaly or mass. RECTAL: Not performed. EXTREMITIES: Without clubbing, cyanosis or edema. NEUROLOGIC: Otherwise, nonfocal. Mood was alert, but was confused. LABORATORY STUDIES: Reviewed. MICROBIOLOGY: Reviewed. IMAGING: Chest x-ray reviewed. CT scan of the chest, abdomen, pelvis and brain reviewed. IMPRESSION: 1. A 74-year-old with bilateral pneumonia, respiratory failure that is now weaned off the ventilator. He has ongoing encephalopathy, likely related to the initial injury whether this was due to hypoglycemic episode and we are dealing with aspiration pneumonia or a primary pneumonia from the community is yet to be determined. We are currently experiencing a COVID-19 pandemic. His initial COVID PCR was negative. Repeat study is currently pending. 2. Fecal impaction. 3. Diabetes with hypoglycemia. 4. Persistent leukocytosis, likely related to the above. RECOMMENDATIONS: We will continue broad antibiotic coverage. Try to obtain sputum culture. In addition, we will add antigen testing and viral respiratory panel. Continue with cathartics to relieve the fecal [place] [address] CONSULTATION Name: COURTNEY SIDDIQUI Room: [address] IN [facility].#: [id number] Admission: 10/02/19 Attend Phys: Anthony Oden MD Discharge: Date of : 47 Report #: [id number] COVID-19 testing. Serial chest x-ray and laboratory studies. We will continue full ICU support. <ELECTRONICALLY SIGNED> By: Bucky Chris MD 10/29/19 2133 1604 1959Bucky Chris MD /nt
--- NOTE | 2019-10-30 06:08 | NUR ---
PT SLEPT WELL THIS SHIFT. ORIENTED TO SELF. CONFUSED. FORGETFUL. COOPERATIVE. PT ATTMEPTED HAVING A BM THIS SHIFT. HAD ONLY A SMALL AMOUNT OF CLEAR GEL-LIKE OUTPUT. WILL PASS ON TO SEE IF PT CAN GET MORE BOWEL PREP TO HELP WITH BM. FALL PRECAUTION IN PLACE. PT TOOK MEDS WHOLE THIS SHIFT. WILL CONTINUE TO MONITOR.
[2019-10-30 07:27] LABS: HEMATOCRIT 31.6 % (42.0-52.0); HEMOGLOBIN 10.9 gm/dL (14.0-18.0); MCH 32.3 pg (26.0-34.0); MCHC 34.5 g/dL (28.0-37.0); MCV 93.5 fL (80.0-100.0); MPV 8.2 fl. (7.2-11.1); RBC 3.38 mil/uL (4.50-6.00); RDW-CV 15.7 % (10.5-14.5); WBC 3.5 thou/uL (4.0-11.0)
[2019-10-30 07:37] LABS: ALBUMIN 2.3 g/dL (3.4-5.0); CALCIUM 8.1 mg/dL (8.5-10.1); CREATININE 0.9 mg/dL (0.6-1.3); MAGNESIUM 1.6 mg/dL (1.8-2.4); POTASSIUM 3.3 mmol/L (3.5-5.1); TOTAL BILIRUBIN 0.8 mg/dL (<0.1-1.0); TOTAL PROTEIN 5.1 g/dL (6.4-8.2)
[2019-10-30 16:00] VITALS: BP 135/74
--- NOTE | 2019-10-30 16:42 | NUR ---
PATIENT UP TO CHAIR FOR MEALS AND THROUGHOUT AFTERNOON. IV ABX INFUSED ORDERED. MG AND POTASSIUM REPLACED PER PROTOCOL. ROSS DRAINING BLOOD TINGED DARK URINE THIS AM, DR. VILLALOBOS WAS NOTIFIED AND STATED WOULD FOLLOW UP. INSULIN GIVEN WITH MEALS BLOOD SUGAR WAS ELEVATED THIS SHIFT. NO BM NOTED THIS SHIFT, WILL GIVE PRN SUPPOSITORY ORDERED. PATIENT FAMILY CALLING THROUGHOUT THE DAY TO SPEAK WITH PATIENT.
[2019-10-30 19:30] VITALS: BP 155/80
[2019-10-30 21:13] LABS: MAGNESIUM 2.3 mg/dL (1.8-2.4); POTASSIUM 3.6 mmol/L (3.5-5.1)
[2019-10-31 07:50] VITALS: BP 155/69
--- NOTE | 2019-10-31 11:53 | NUR ---
SW called pt about dc planning for today and pt agreeable with pt to dc home with family today and hospice care to follow. 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 Pilar riggs. SAMEERA spoke with Shabnam at [facility] who accepted referral and confirmed that [facility] will follow up with pt/family to provide support and assist with pt needs at home.
[2019-10-31] MEDS ORDERED: LEVAQUIN 500 M500 M3 PO (12:38)
[2019-10-31] MEDS ORDERED: GLUCOPHAGE850 MG PO (12:38)
[2019-10-31] MEDS ORDERED: EXELON1 EACH TRANSDERM (12:38)
[2019-10-31 12:57] VITALS: BP 155/69
--- NOTE | 2019-10-31 16:26 | NUR ---
PATIENT DISCHARGED TO HOME WITH FAMILY AT THIS TIME. IV DC'D. PATIENT ORSS DC'D THIS AFTERNOON PER ORDERS, PATIENT VOIDED 25MLS WITH ONLY 4MLS NOTED IN BLADDER WITH SCAN. DR. VILLALOBOS NOTIFIED AND OK TO DISCHARGE HOME. FAMILY VERBALIZES UNDERSTANDING OF PAPERWORK AND SCRIPTS. PATIENT TAKEN OUT VIA WHEELCHAIR WITH ALL BELONGINGS.
--- NOTE | 2019-11-12 12:39 | EEG ---
[address] [address] EEG STUDY REPORT Name: ARTURCOURTNEY Lynn Room: [address] IN M.R.#: [id number] Admission: 10/02/19 Attend Phys: Anthony Oden MD Discharge: 10/31/19 Date of : 47 Report #: [id number] THIS REPORT FOR: //name// CC: Anthony Oden FAM unknown [facility] DATE OF SERVICE: 10/29/2019 This patient is being evaluated for altered mental status. EEG was done by placing the electrode by standard 10-20 system of electrode placement. Both referential and sequential montages were used for recording. Background activity in this patient's EEG is about 6-7 Hz and 15-20 microvolt. The patient became drowsy that is associated with bilateral slowing. Photic stimulation is unremarkable. No active epileptiform activity was noticed. IMPRESSION: This is an abnormal EEG because it is disorganized and poorly formed. That is a nonspecific abnormality, which can occur with dementia, encephalopathy, effect of psychotropic medication, etc. Clinical correlation is recommended. <ELECTRONICALLY SIGNED> By: Nicho Ann MD 11/12/19 1239 0041Parakin Ann MD /nt
== END 2019-10-31 16:28 | disposition hospice, home (50) | DRG 871 ==
LOC: M.ERS 11:45 → M.TBA-ER 13:50 → M.ICU 13:50 → M.2W 10-07 11:15 → M.ICU 10-11 15:30 → M.3W 10-17 17:45
PROVIDERS: Family Medicine; Internal Medicine; Internal Medicine Critical Care Medicine; Internal Medicine Pulmonary Disease; ADMIT Internal Medicine; ATTEND Internal Medicine
PROC: 05HM33Z Insertion of Infusion Device into Right Internal Jugular Vein, Percutaneous Approach (ICD-10-PCS; 2019-10-02)
PROC: 5A1945Z Respiratory Ventilation, 24-96 Consecutive Hours (ICD-10-PCS; principal; 2019-10-11)
PROC: 0BH17EZ Insertion of Endotracheal Airway into Trachea, Via Natural or Artificial Opening (ICD-10-PCS; principal; 2019-10-11)
DX: A41.9 Sepsis, unspecified organism (principal); J96.01 Acute respiratory failure with hypoxia; J18.9 Pneumonia, unspecified organism; E11.10 Type 2 diabetes mellitus with ketoacidosis without coma; R65.21 Severe sepsis with septic shock; E43 Unspecified severe protein-calorie malnutrition; G93.40 Encephalopathy, unspecified; E87.2 Acidosis; N17.9 Acute kidney failure, unspecified; N39.0 Urinary tract infection, site not specified; I10 Essential (primary) hypertension; K56.41 Fecal impaction; E11.649 Type 2 diabetes mellitus with hypoglycemia without coma; D72.829 Elevated white blood cell count, unspecified; E83.39 Other disorders of phosphorus metabolism; Z51.5 Encounter for palliative care; E87.5 Hyperkalemia; R13.0 Aphagia; G30.0 Alzheimer's disease with early onset; F02.80 Dementia in other diseases classified elsewhere, unspecified severity, without behavioral disturbance, psychotic disturbance, mood disturbance, and anxiety; E11.65 Type 2 diabetes mellitus with hyperglycemia; Z82.49 Family history of ischemic heart disease and other diseases of the circulatory system; Z88.8 Allergy status to other drugs, medicaments and biological substances; Z86.73 Personal history of transient ischemic attack (TIA), and cerebral infarction without residual deficits; Z79.899 Other long term (current) drug therapy; Z68.23 Body mass index [BMI] 23.0-23.9, adult; Z20.828 Contact with and (suspected) exposure to other viral communicable diseases

== ENCOUNTER 2019-11-02 06:58 | Inpatient (IN) | payer MEDICARE ==
[2019-11-02] VITALS (13 sets, daily range): BP systolic 116–134; BP diastolic 46–62
[~2019-11-02] VITALS: Ht 177.8 cm; Wt 66.7 kg
[~2019-11-02 06:58] MED LIST: ARTIFICIAL TEAR15 M4 OP; ARTIFICIAL TEAR15 M4 OPHTHALMIC; EXELON1 EACH TRANSDERM; GLUCOPHAGE850 MG PO; INSULIN AS100 UNIT/1 SUBQ; LANTUSSOLASTAR SUBQ; LEVAQUIN 500 M500 M3 PO; NORVASC 2.5 MG2.5 M1 PO; PREDNISOLONE ACE5 ML OPHTHALMIC; VOLTAREN GEL 1100 GM TOP
[2019-11-02 08:10] LABS: APTT 18.3 Seconds (25.0-31.3); PROTIME 10.1 Seconds (9.20-11.50)
[2019-11-02 08:14] LABS: ABSOLUTE LYMPHOCYTES 0.8 thou/uL (0.8-5.3); ABSOLUTE MONOCYTES 0.2 thou/uL (0.0-1.2); ABSOLUTE NEUTROPHILS 3.8 thou/uL (1.6-8.1); EOSINOPHILS 0.3 %; HEMATOCRIT 30.3 % (42.0-52.0); HEMOGLOBIN 9.8 gm/dL (14.0-18.0); LYMPHOCYTES 16.1 %; MCHC 32.3 g/dL (28.0-37.0); MCV 99.2 fL (80.0-100.0); MONOCYTES 4.5 %; MPV 8.6 fl. (7.2-11.1); NUCLEATED RBCS 0 /100WBC; PLATELET COUNT* 130 thou/uL (150-400); POLYS 78.1 %; RBC 3.06 mil/uL (4.50-6.00); RDW-CV 16.7 % (10.5-14.5); WBC 4.9 thou/uL (4.0-11.0)
[2019-11-02 08:17] LABS: URINE BILIRUBIN NEGATIVE (Negative); URINE BLOOD NEGATIVE (Negative); URINE CLARITY CLEAR; URINE COLOR YELLOW; URINE GLUCOSE-RANDOM 2+ (Negative); URINE LEUKOCYTES-REFLEX NEGATIVE (Negative); URINE NITRITE-REFLEX NEGATIVE (Negative); URINE PROTEIN NEGATIVE (Negative); URINE UROBILINOGEN 0.2 E.U./dl (0.2-1.0)
[2019-11-02 08:22] LABS: URINE KETONES 3+ (Negative)
[2019-11-02 08:36] LABS: ALBUMIN 1.8 g/dL (3.4-5.0); CREATININE 0.9 mg/dL (0.6-1.3); TOTAL BILIRUBIN 0.3 mg/dL (<0.1-1.0); TOTAL PROTEIN 3.9 g/dL (6.4-8.2)
[2019-11-02 08:38] LABS: CALCIUM 5.5 mg/dL (8.5-10.1); POTASSIUM 2.9 mmol/L (3.5-5.1)
[2019-11-02 09:11] LABS: BE -21.1 mmol/L (-2 to +3); PO2 117.6 mmHg (75.0-100.0)
[2019-11-02 09:13] LABS: PCO2 < 17.0 mmHg (35.0-45.0); pH 7.153 (7.340-7.450)
[2019-11-02 13:15] LABS: CREATININE 1.5 mg/dL (0.6-1.3)
[2019-11-02 13:16] LABS: CALCIUM 8.8 mg/dL (8.5-10.1); POTASSIUM 4.5 mmol/L (3.5-5.1)
[2019-11-02 13:18] LABS: ALBUMIN 2.8 g/dL (3.4-5.0); MAGNESIUM 2.1 mg/dL (1.8-2.4); PHOSPHORUS* 2.9 mg/dL (2.5-4.9)
[2019-11-02 15:14] LABS: PCO2 30.3 mmHg (35.0-45.0); PO2 100.9 mmHg (75.0-100.0); pH 7.332 (7.340-7.450)
[2019-11-02 18:05] LABS: CALCIUM 8.5 mg/dL (8.5-10.1); CREATININE 1.4 mg/dL (0.6-1.3); POTASSIUM 3.9 mmol/L (3.5-5.1)
[2019-11-02 18:08] LABS: ALBUMIN 2.6 g/dL (3.4-5.0); PHOSPHORUS* 2.1 mg/dL (2.5-4.9)
[2019-11-02 21:56] LABS: CALCIUM 8.5 mg/dL (8.5-10.1); CREATININE 1.2 mg/dL (0.6-1.3)
[2019-11-02 21:57] LABS: POTASSIUM 4.1 mmol/L (3.5-5.1)
[2019-11-02 21:59] LABS: ALBUMIN 1.9 g/dL (3.4-5.0); MAGNESIUM 1.9 mg/dL (1.8-2.4); PHOSPHORUS* 2.3 mg/dL (2.5-4.9)
[2019-11-03] VITALS (20 sets, daily range): BP systolic 124–146; BP diastolic 49–100
[2019-11-03 03:36] LABS: HEMATOCRIT 32.4 % (42.0-52.0); HEMOGLOBIN 11.1 gm/dL (14.0-18.0); MCH 32.2 pg (26.0-34.0); MCHC 34.3 g/dL (28.0-37.0); MPV 8.7 fl. (7.2-11.1); RBC 3.46 mil/uL (4.50-6.00); RDW-CV 15.8 % (10.5-14.5)
[2019-11-03 03:43] LABS: MCV 93.8 fL (80.0-100.0)
[2019-11-03 03:57] LABS: ALBUMIN 2.5 g/dL (3.4-5.0); CALCIUM 8.3 mg/dL (8.5-10.1); CREATININE 1.3 mg/dL (0.6-1.3); MAGNESIUM 1.7 mg/dL (1.8-2.4); PHOSPHORUS* 2.2 mg/dL (2.5-4.9); POTASSIUM 3.9 mmol/L (3.5-5.1)
[2019-11-03 07:36] LABS: ALBUMIN 2.6 g/dL (3.4-5.0); CALCIUM 8.4 mg/dL (8.5-10.1); CREATININE 1.2 mg/dL (0.6-1.3); MAGNESIUM 1.8 mg/dL (1.8-2.4); PHOSPHORUS* 1.9 mg/dL (2.5-4.9); POTASSIUM 3.9 mmol/L (3.5-5.1)
--- NOTE | 2019-11-03 11:19 | EKG ---
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: : 1945 Requested By: Edmund Moon Order Number: [id number] MD: Alessandro Stephen Measurements Intervals [place] Rate: 92 P: 62 CA: 170 QRS: 51 QRSD: 80 T: 29 QT: 340 QTc: 421 Interpretive Statements Sinus rhythm Probable septal infarct, old Compared to ECG 10/03/2019 23:14:28 Sinus tachycardia no longer present Myocardial infarct finding still present Electronically Signed On 11-03-2019 11:18:00 CDT by Alessandro Stephen [email or web address] <ELECTRONICALLY SIGNED> By: Alessandro Stephen MD, [facility] 11/03/19 1118 1 1 Alessandro Stephen MD, [facility] /EPI
[2019-11-04 07:41] VITALS: BP 122/71
[2019-11-04 07:51] LABS: CALCIUM 8.6 mg/dL (8.5-10.1); MAGNESIUM 1.8 mg/dL (1.8-2.4); POTASSIUM 3.6 mmol/L (3.5-5.1)
[2019-11-04 16:00] VITALS: BP 130/77
[2019-11-04 21:00] VITALS: BP 129/71
[2019-11-05 07:50] VITALS: BP 156/79
[2019-11-05 21:25] VITALS: BP 123/63
[2019-11-06 08:24] VITALS: BP 144/64
[2019-11-06 11:23] VITALS: BP 144/64
[2019-11-06 11:29] VITALS: BP 144/64
== END 2019-11-06 13:13 | DRG 637 ==
LOC: M.ERS 06:58 → M.TBA-ER 09:34 → M.ICU 16:45 → M.3W 11-03 13:56
PROVIDERS: Family Medicine; ADMIT Internal Medicine; ATTEND Internal Medicine
DX: E11.10 Type 2 diabetes mellitus with ketoacidosis without coma (principal); N17.0 Acute kidney failure with tubular necrosis; E87.0 Hyperosmolality and hypernatremia; E86.0 Dehydration; I10 Essential (primary) hypertension; E87.6 Hypokalemia; F03.90 Unspecified dementia, unspecified severity, without behavioral disturbance, psychotic disturbance, mood disturbance, and anxiety; E86.9 Volume depletion, unspecified; Z20.828 Contact with and (suspected) exposure to other viral communicable diseases; Z88.8 Allergy status to other drugs, medicaments and biological substances; Z79.899 Other long term (current) drug therapy

== ENCOUNTER 2020-01-28 02:00 | Emergency (ER) | payer MEDICARE, OTHER ==
[~2020-01-28] VITALS: Ht 165.1 cm; Wt 71.3 kg
[2020-01-28 02:25] LABS: URINE BILIRUBIN NEGATIVE (Negative); URINE BLOOD NEGATIVE (Negative); URINE CLARITY CLEAR; URINE COLOR YELLOW; URINE GLUCOSE-RANDOM TRACE (Negative); URINE KETONES NEGATIVE (Negative); URINE LEUKOCYTES-REFLEX NEGATIVE (Negative); URINE NITRITE-REFLEX NEGATIVE (Negative); URINE PROTEIN NEGATIVE (Negative); URINE UROBILINOGEN 0.2 E.U./dl (0.2-1.0)
[2020-01-28 02:36] LABS: ABSOLUTE LYMPHOCYTES 0.8 thou/uL (0.8-5.3); ABSOLUTE MONOCYTES 0.3 thou/uL (0.0-1.2); ABSOLUTE NEUTROPHILS 3.8 thou/uL (1.6-8.1); BASOPHILS 0.5 %; EOSINOPHILS 0.5 %; HEMATOCRIT 39.7 % (42.0-52.0); HEMOGLOBIN 13.4 gm/dL (14.0-18.0); LYMPHOCYTES 15.6 %; MCH 31.5 pg (26.0-34.0); MCHC 33.8 g/dL (28.0-37.0); MCV 93.1 fL (80.0-100.0); MONOCYTES 5.5 %; NUCLEATED RBCS 0 /100WBC; PLATELET COUNT* 266 thou/uL (150-400); POLYS 77.9 %; RBC 4.27 mil/uL (4.50-6.00); RDW-CV 15.2 % (10.5-14.5); WBC 4.9 thou/uL (4.0-11.0)
[2020-01-28 02:50] LABS: CALCIUM 8.8 mg/dL (8.5-10.1); CREATININE 0.9 mg/dL (0.6-1.3); POTASSIUM 3.3 mmol/L (3.5-5.1)
[2020-01-28 02:51] LABS: PROTIME 9.9 Seconds (9.20-11.50)
[2020-01-28 03:01] LABS: ALBUMIN 3.5 g/dL (3.4-5.0); MAGNESIUM 1.8 mg/dL (1.8-2.4); TOTAL BILIRUBIN 0.2 mg/dL (<0.1-1.0); TOTAL PROTEIN 7.1 g/dL (6.4-8.2)
[2020-01-28 04:15] VITALS: BP 132/73
--- NOTE | 2020-01-28 13:37 | EKG ---
[place] [address] ELECTROCARDIOGRAM REPORT Name: COURTNEY SIDDIQUI Room: [facility]#: [id number] Admission: 01/28/20 Attend Phys: Discharge: 01/28/20 Date of : 47 Date of Service: 01/28/20 0235 Report #: [id number] THIS REPORT FOR: //name// [facility] ED Test Date: 2020-01-28 Test Time: 02:35:18 Pat Name: COURTNEY SIDDIQUI Department: Room: Gender: Renal Medicine Specialist: JOJO : 1945 Requested By: Savannah Rendon Order Number: [id number] MD: Alessandro Stephen Measurements Intervals [place] Rate: 80 P: 43 HI: 229 QRS: 30 QRSD: 98 T: 19 QT: 413 QTc: 477 Interpretive Statements Sinus rhythm septal q waves noted Prolonged HI interval Borderline T abnormalities, inferior leads Borderline prolonged QT interval Compared to ECG 11/02/2019 07:12:13 First degree AV block now present Electronically Signed On 01-28-2020 13:37:07 CDT by Alessandro Stephen [email or web address] <ELECTRONICALLY SIGNED> By: Alessandro Stephen MD, [facility] 01/28/20 1337 0235 0235 Alessandro Stephen MD, [facility] /EPI
== END 2020-01-28 04:15 | disposition home or self-care (01) ==
LOC: M.ERS 02:00
PROVIDERS: Emergency Medicine
DX: E11.649 Type 2 diabetes mellitus with hypoglycemia without coma (principal); I10 Essential (primary) hypertension; Z87.01 Personal history of pneumonia (recurrent); Z98.890 Other specified postprocedural states

== ENCOUNTER 2020-06-16 12:02 | Inpatient (IN) | payer OTHER ==
[2020-06-16] VITALS (11 sets, daily range): BP systolic 129–158; BP diastolic 66–102
[~2020-06-16] VITALS: Ht 177.8 cm; Wt 74.8 kg
[2020-06-16 13:07] LABS: URINE BLOOD 3+ (Negative); URINE CLARITY SL CLOUDY; URINE COLOR YELLOW; URINE GLUCOSE-RANDOM 1+ (Negative); URINE LEUKOCYTES-REFLEX NEGATIVE (Negative); URINE NITRITE-REFLEX NEGATIVE (Negative); URINE PROTEIN 2+ (Negative); URINE SPECIFIC GRAVITY >= 1.030 (1.005-1.030); URINE UROBILINOGEN 0.2 E.U./dl (0.2-1.0)
[2020-06-16 13:09] LABS: URINE BILIRUBIN 2+ (Negative); URINE KETONES 3+ (Negative)
[2020-06-16 13:10] LABS: ICTOTEST (BILI CONFIRMATORY) Negative (Negative)
[2020-06-16 13:12] LABS: ABSOLUTE BASOPHILS 0.1 thou/uL (0.0-0.2); ABSOLUTE LYMPHOCYTES 1.5 thou/uL (0.8-5.3); ABSOLUTE MONOCYTES 0.5 thou/uL (0.0-1.2); ABSOLUTE NEUTROPHILS 12.2 thou/uL (1.6-8.1); BASOPHILS 0.9 %; EOSINOPHILS 0.1 %; HEMATOCRIT 52.8 % (42.0-52.0); HEMOGLOBIN 17.3 gm/dL (14.0-18.0); LYMPHOCYTES 10.5 %; MCH 30.3 pg (26.0-34.0); MCHC 32.8 g/dL (28.0-37.0); MCV 92.4 fL (80.0-100.0); MONOCYTES 3.7 %; MPV 9.6 fl. (7.2-11.1); NUCLEATED RBCS 0 /100WBC; PLATELET COUNT* 242 thou/uL (150-400); POLYS 84.8 %; RBC 5.72 mil/uL (4.50-6.00); RDW-CV 15.4 % (10.5-14.5); WBC 14.4 thou/uL (4.0-11.0)
[2020-06-16 13:13] LABS: BACTERIA-REFLEX 1-9 Few /HPF (None Seen); CRYSTALS None Seen /LPF (None Seen); HYALINE CASTS 4-10 Moderate /LPF (None Seen); MUCUS None Seen strn/LPF (None Seen); SQUAMOUS 0-3 Few /LPF (0-3); URINE RBC 0-2 Rare /HPF (0-2); URINE WBC-REFLEX None Seen /HPF (0-5)
[2020-06-16 13:50] LABS: BE -13.5 mmol/L (-2 to +3); PCO2 VENOUS 30.2 mmHg (41.0-51.0); PO2 VENOUS 60.2 mmHg (35.0-45.0)
[2020-06-16 14:05] LABS: PROTIME 9.9 Seconds (9.20-11.50)
[2020-06-16 14:06] LABS: INR < 0.9
[2020-06-16 14:08] LABS: CALCIUM 9.8 mg/dL (8.5-10.1); POTASSIUM 5.4 mmol/L (3.5-5.1)
[2020-06-16 14:22] LABS: TOTAL BILIRUBIN 0.4 mg/dL (<0.1-1.0); TOTAL PROTEIN 7.5 g/dL (6.4-8.2)
--- NOTE | 2020-06-16 15:33 | EKG ---
[place] [address] ELECTROCARDIOGRAM REPORT Name: COURTNEY SIDDIQUI Room: [place] [address] ADM IN ..#: [id number] Admission: 06/16/20 Attend Phys: Aida Quezada, Discharge: Date of : 47 Date of Service: 06/16/20 1241 Report #: [id number] THIS REPORT FOR: //name// [facility] ED Test Date: 2020-06-16 Test Time: 12:41:28 Pat Name: COURTNEY SIDDIQUI Department: Room: [facility] Gender: M Public Area Supervisor: TC : 1945 Requested By: Rodney Iniguez Order Number: [id number] MD: Dima Brown Measurements Intervals [place] Rate: 109 P: 51 RI: 146 QRS: 40 QRSD: 90 T: 33 QT: 333 QTc: 449 Interpretive Statements Sinus tachycardia Borderline low voltage, extremity leads Anterolateral ST segment elevation is noted; ischemia or injury must be considered Compared to ECG 01/28/2020 02:35:18 Sinus rate has increased Q waves no longer present First degree AV block no longer present Anterolateral ST segment elevation is noted Electronically Signed On 06-16-2020 15:33:36 SPINNER CONCR[employer]E PIPE by Dima Brown [email or web address] <ELECTRONICALLY SIGNED> By: Dima Brown MD, [facility] 06/16/20 1533 1241 1241 Dima Brown MD, [facility] /EPI
[2020-06-16 18:02] LABS: BE -17.7 mmol/L (-2 to +3); PCO2 VENOUS 22.2 mmHg (41.0-51.0); PO2 VENOUS 104.4 mmHg (35.0-45.0)
[2020-06-16 18:35] LABS: CALCIUM 6.8 mg/dL (8.5-10.1); CREATININE 1.4 mg/dL (0.6-1.3); MAGNESIUM 2.5 mg/dL (1.8-2.4); PHOSPHORUS* 1.4 mg/dL (2.5-4.9); POTASSIUM 3.7 mmol/L (3.5-5.1)
[2020-06-16 22:27] LABS: ALBUMIN 2.6 g/dL (3.4-5.0); CREATININE 1.5 mg/dL (0.6-1.3); MAGNESIUM 3.1 mg/dL (1.8-2.4); PHOSPHORUS* 1.6 mg/dL (2.5-4.9)
[2020-06-16 22:28] LABS: PCO2 VENOUS 30.7 mmHg (41.0-51.0); PO2 VENOUS 48.9 mmHg (35.0-45.0)
[2020-06-16 22:29] LABS: POTASSIUM 4.9 mmol/L (3.5-5.1)
[2020-06-17] VITALS (34 sets, daily range): BP systolic 78–209; BP diastolic 42–166
[2020-06-17 02:17] LABS: ALBUMIN 2.4 g/dL (3.4-5.0); CALCIUM 8.5 mg/dL (8.5-10.1); CREATININE 1.5 mg/dL (0.6-1.3); MAGNESIUM 2.9 mg/dL (1.8-2.4); PHOSPHORUS* 1.3 mg/dL (2.5-4.9); POTASSIUM 4.2 mmol/L (3.5-5.1)
[2020-06-17 06:14] LABS: ABSOLUTE BASOPHILS 0.1 thou/uL (0.0-0.2); ABSOLUTE LYMPHOCYTES 0.7 thou/uL (0.8-5.3); ABSOLUTE MONOCYTES 0.3 thou/uL (0.0-1.2); ABSOLUTE NEUTROPHILS 8.9 thou/uL (1.6-8.1); BASOPHILS 0.9 %; HEMATOCRIT 41.6 % (42.0-52.0); LYMPHOCYTES 7.2 %; MCH 29.7 pg (26.0-34.0); MCHC 33.2 g/dL (28.0-37.0); MCV 89.2 fL (80.0-100.0); MONOCYTES 2.6 %; MPV 8.6 fl. (7.2-11.1); NUCLEATED RBCS 0 /100WBC; PLATELET COUNT* 192 thou/uL (150-400); POLYS 89.3 %; RBC 4.66 mil/uL (4.50-6.00); RDW-CV 14.9 % (10.5-14.5)
[2020-06-17 06:15] LABS: HEMOGLOBIN 13.8 gm/dL (14.0-18.0)
[2020-06-17 06:48] LABS: ALBUMIN 2.2 g/dL (3.4-5.0); CALCIUM 8.3 mg/dL (8.5-10.1); CREATININE 1.5 mg/dL (0.6-1.3); PHOSPHORUS* 1.3 mg/dL (2.5-4.9); TOTAL BILIRUBIN 0.1 mg/dL (<0.1-1.0); TOTAL PROTEIN 6.2 g/dL (6.4-8.2)
[2020-06-17 08:34] LABS: BE -5.8 mmol/L (-2 to +3); PCO2 28.6 mmHg (35.0-45.0); pH 7.401 (7.340-7.450)
[2020-06-17 08:37] LABS: PO2 57.5 mmHg (75.0-100.0)
[2020-06-17 15:18] LABS: CALCIUM 8.4 mg/dL (8.5-10.1); CREATININE 1.3 mg/dL (0.6-1.3); POTASSIUM 4.8 mmol/L (3.5-5.1)
[2020-06-18] VITALS (48 sets, daily range): BP systolic 76–134; BP diastolic 44–95
[2020-06-18 06:02] LABS: HEMATOCRIT 43.7 % (42.0-52.0); HEMOGLOBIN 14.4 gm/dL (14.0-18.0); MCH 29.3 pg (26.0-34.0); MCV 88.9 fL (80.0-100.0); RBC 4.91 mil/uL (4.50-6.00); RDW-CV 15.3 % (10.5-14.5); WBC 12.7 thou/uL (4.0-11.0)
[2020-06-18 06:32] LABS: CALCIUM 8.7 mg/dL (8.5-10.1); CREATININE 1.4 mg/dL (0.6-1.3); POTASSIUM 4.3 mmol/L (3.5-5.1)
[2020-06-18 14:29] LABS: BE -4.9 mmol/L (-2 to +3); PCO2 VENOUS 37.6 mmHg (41.0-51.0); PO2 VENOUS 33.8 mmHg (35.0-45.0)
[2020-06-18 14:42] LABS: CALCIUM 8.7 mg/dL (8.5-10.1); CREATININE 1.2 mg/dL (0.6-1.3); POTASSIUM 4.7 mmol/L (3.5-5.1)
[2020-06-19] VITALS (84 sets, daily range): BP systolic 94–230; BP diastolic 50–196
[2020-06-19 05:04] LABS: HEMATOCRIT 43.7 % (42.0-52.0); HEMOGLOBIN 14.7 gm/dL (14.0-18.0); MCH 29.8 pg (26.0-34.0); MCHC 33.6 g/dL (28.0-37.0); MCV 88.5 fL (80.0-100.0); MPV 7.7 fl. (7.2-11.1); NUCLEATED RBCS 0 /100WBC; RBC 4.94 mil/uL (4.50-6.00); RDW-CV 15.4 % (10.5-14.5); WBC 12.2 thou/uL (4.0-11.0)
[2020-06-19 05:16] LABS: ALBUMIN 2.3 g/dL (3.4-5.0); CALCIUM 8.5 mg/dL (8.5-10.1); MAGNESIUM 2.3 mg/dL (1.8-2.4); TOTAL BILIRUBIN 0.7 mg/dL (<0.1-1.0); TOTAL PROTEIN 6.7 g/dL (6.4-8.2)
[2020-06-19 05:17] LABS: POTASSIUM 3.3 mmol/L (3.5-5.1)
[2020-06-19 05:22] LABS: PLATELET COUNT* 89 thou/uL (150-400)
[2020-06-19 07:40] LABS: ABSOLUTE LYMPHOCYTES 0.9 thou/uL (0.8-5.3); ABSOLUTE MONOCYTES 0.5 thou/uL (0.0-1.2); ABSOLUTE NEUTROPHILS 10.9 thou/uL (1.6-8.1)
[2020-06-19 07:42] LABS: LARGE PLATELETS RARE; PLATELET ESTIMATE DECREASED
[2020-06-20] VITALS (19 sets, daily range): BP systolic 97–148; BP diastolic 63–81
[2020-06-20 07:33] LABS: ABSOLUTE LYMPHOCYTES 0.7 thou/uL (0.8-5.3); ABSOLUTE MONOCYTES 0.6 thou/uL (0.0-1.2); ABSOLUTE NEUTROPHILS 11.1 thou/uL (1.6-8.1); BASOPHILS 0.3 %; EOSINOPHILS 0.2 %; HEMATOCRIT 44.2 % (42.0-52.0); HEMOGLOBIN 14.7 gm/dL (14.0-18.0); LYMPHOCYTES 5.5 %; MCH 29.5 pg (26.0-34.0); MCHC 33.2 g/dL (28.0-37.0); MCV 88.8 fL (80.0-100.0); MONOCYTES 5.2 %; MPV 8.7 fl. (7.2-11.1); NUCLEATED RBCS 0 /100WBC; PLATELET COUNT* 69 thou/uL (150-400); POLYS 88.8 %; RBC 4.98 mil/uL (4.50-6.00); RDW-CV 15.2 % (10.5-14.5); WBC 12.5 thou/uL (4.0-11.0)
[2020-06-20 07:50] LABS: PREALBUMIN 11.6 mg/dL (18.0-35.7)
[2020-06-20 07:52] LABS: CALCIUM 8.4 mg/dL (8.5-10.1); CREATININE 1.5 mg/dL (0.6-1.3); POTASSIUM 4.8 mmol/L (3.5-5.1); TOTAL BILIRUBIN 0.8 mg/dL (<0.1-1.0); TOTAL PROTEIN 5.6 g/dL (6.4-8.2)
[2020-06-21] VITALS (7 sets, daily range): BP systolic 107–149; BP diastolic 65–81
[2020-06-21 04:41] LABS: ABSOLUTE LYMPHOCYTES 0.7 thou/uL (0.8-5.3); ABSOLUTE NEUTROPHILS 12.1 thou/uL (1.6-8.1); BASOPHILS 0.3 %; HEMATOCRIT 45.2 % (42.0-52.0); LYMPHOCYTES 4.8 %; MCH 29.3 pg (26.0-34.0); MCHC 33.1 g/dL (28.0-37.0); MCV 88.5 fL (80.0-100.0); MONOCYTES 7.3 %; MPV 8.7 fl. (7.2-11.1); NUCLEATED RBCS 0 /100WBC; PLATELET COUNT* 50 thou/uL (150-400); POLYS 87.6 %; RBC 5.11 mil/uL (4.50-6.00); RDW-CV 15.4 % (10.5-14.5); WBC 13.8 thou/uL (4.0-11.0)
[2020-06-21 04:56] LABS: PREALBUMIN 11.3 mg/dL (18.0-35.7)
[2020-06-21 04:59] LABS: ALBUMIN 1.9 g/dL (3.4-5.0); CALCIUM 8.1 mg/dL (8.5-10.1); POTASSIUM 4.6 mmol/L (3.5-5.1); TOTAL BILIRUBIN 0.8 mg/dL (<0.1-1.0); TOTAL PROTEIN 5.5 g/dL (6.4-8.2)
--- NOTE | 2020-06-24 15:59 | CON ---
[address] [address] CONSULTATION Name: COURTNEY SIDDIQUI [place] Room: [address] IN M.R.#: [id number] Admission: 06/16/20 Attend Phys: Aida Quezada MD Discharge: 06/21/20 Date of : 47 Report #: [id number] THIS REPORT FOR: cc: [facility] - Clinic physician unknown [facility] - Clinic physician unknown ~ Oseas Horne MD DATE OF SERVICE: 06/16/2020 CONSULT HAS BEEN REQUESTED: Dr. Salgado. INDICATION FOR CONSULTATION: Acute hypoxemic respiratory failure secondary to COVID-19. HISTORY OF PRESENT ILLNESS: A 74-year-old gentleman with past medical history as mentioned below. The patient does have a history of diabetes. He has no known history of smoking. His baseline creatinine is normal. He does have a history of dementia. The patient is now admitted with generalized weakness, coughing as well as shortness of breath. The patient is reported to have had a decreased appetite for the last 2-3 days. He currently is able to provide only a limited history. He is hyperglycemic, blood glucoses are in the mid 300s. He is also in acute renal failure. There is also a significant metabolic acidosis on his venous blood gas. The patient is currently on 50% BiPAP. He is noted to be DNR and DNI. The patient is not able to provide a detailed history or review of systems. The patient is noted to be positive for COVID-19. PAST MEDICAL HISTORY: Hypertension, diabetes, back surgery, dementia. He has had DKA in the past as well as hypertension, debility. I do not have a measure of his left ventricular ejection fraction available at this time. The patient's previous creatinine is 0.9. SOCIAL HISTORY: There is no known history of smoking, ethanol abuse or drug abuse. CURRENT MEDICATIONS: List in SpotOn reviewed. HOME MEDICATIONS: List also in SpotOn reviewed. ALLERGIES: HE IS REPORTED TO BE ALLERGIC TO SIMVASTATIN, AND LISINOPRIL. FAMILY HISTORY: There is no known pertinent family history. PHYSICAL EXAMINATION: [place] [address] CONSULTATION Name: COURTNEY SIDDIQUI Room: [address]#: [id number] Admission: 06/16/20 Attend Phys: Aida Quezada MD Discharge: 06/21/20 Date of : 47 Report #: [id number] GENERAL: He was drowsy. He is fully arousable. He is on a BiPAP of 50%. He did not appear to be in any distress at this time, he is mildly tachypneic though respiratory rate is around 25, BiPAP of 14/8. VITAL SIGNS: Pulse is 100, blood pressure 129/66. He was saturating 97%. He is afebrile. HEENT: Head is normocephalic and atraumatic. Pupils are equal and reactive. There is no throat erythema. His mucous membranes do appear to be dry. NECK: Does not show raised JVP, asymmetry, mass or lymph nodes. CHEST: Symmetrical expansion on inspection and palpation. On auscultation, breath sounds are bilaterally equal. I do not hear any added sounds. HEART: Regular. There is no murmur. ABDOMEN: Soft and nontender. EXTREMITIES: Lower extremities, in fact show no edema, no calf tenderness. SKIN: Dry and intact. NEUROLOGICAL: Moves all extremities bilaterally equally and spontaneously with no focal deficit identified. LABORATORY DATA: The patient's chest x-rays are reviewed and these do show interstitial infiltrates consistent with COVID-19. There is also a more lobar infiltrate, which is noted in the right middle/lower lobe region, which raises the possibility of a secondary bacterial infection. I do not see any significant pulmonary vascular congestion. The patient's lab work is in SpotOn and this is reviewed. ASSESSMENT AND PLAN: 1. Acute hypoxemic respiratory failure secondary to COVID-19. The patient also has a metabolic acidosis, which also does appear to be increasing his metabolic drive. The patient has lab work due at 6:00 p.m. we will review. In the meantime, we will keep him on BiPAP. I switched him over to AVAPS mode. I requested a venous blood gas to be performed with the lab work due at 6:00 p.m. 2. COVID-19, I agree with dexamethasone. I also agree with requesting remdesivir. The patient does have acute renal failure, potential benefit of remdesivir does appear to outweigh risks at this time, we will also follow LFTs closely while he is on remdesivir. 3. Pulmonary infiltrates. Considering multifocal consolidation in the right middle/lower lobe region I agree with treating him with ceftriaxone as well. 4. Uncontrolled diabetes/possible DKA. He is receiving fluid resuscitation. He also has an insulin drip. The patient does have a PICC line for IV access. 5. Acute renal failure with metabolic acidosis. I would expect his metabolic acidosis will improve with fluid resuscitation. He has received a significant amount of fluids, which in fact he has tolerated since the venous blood gas was performed. Metabolic acidosis does appear to be increasing his respiratory drive. We will see trend on the lab work at 6:00 p.m. if a significant metabolic acidosis persists, then I may consider adding bicarbonate to his IV [facility] [address] [place] [address] CONSULTATION Name: COURTNEY SIDDIQUI Room: [address] IN .R.#: [id number] Admission: 06/16/20 Attend Phys: Aida Quezada MD Discharge: 06/21/20 Date of : 47 Report #: [id number] fluids. 6. Deep vein thrombosis prophylaxis, he is on Lovenox. Watch creatinine. 7. History of dementia. The patient is critically ill at this time. Total time spent providing critical care to this patient today is over 39 minutes. <ELECTRONICALLY SIGNED> By: Oseas Horne MD 06/24/20 1559 1643 1715Aniraj Horne MD /nt
== END 2020-06-21 15:52 | DRG 871 ==
LOC: M.ERS 12:02 → M.ICU 13:21 → M.TBA-ER 13:21 → M.ICU 15:50
PROVIDERS: Emergency Medicine Emergency Medical Services; Family Medicine; Internal Medicine; Internal Medicine Critical Care Medicine; ADMIT Internal Medicine; ATTEND Internal Medicine
DX: A41.89 Other specified sepsis (principal); E11.10 Type 2 diabetes mellitus with ketoacidosis without coma; U07.1 COVID-19; N17.0 Acute kidney failure with tubular necrosis; J12.82 Pneumonia due to coronavirus disease 2019; J96.01 Acute respiratory failure with hypoxia; G92 Toxic encephalopathy; N39.0 Urinary tract infection, site not specified; E44.0 Moderate protein-calorie malnutrition; E87.0 Hyperosmolality and hypernatremia; B19.9 Unspecified viral hepatitis without hepatic coma; I10 Essential (primary) hypertension; E86.9 Volume depletion, unspecified; R74.01 Elevation of levels of liver transaminase levels; F03.90 Unspecified dementia, unspecified severity, without behavioral disturbance, psychotic disturbance, mood disturbance, and anxiety; E88.09 Other disorders of plasma-protein metabolism, not elsewhere classified; E87.5 Hyperkalemia; D69.6 Thrombocytopenia, unspecified; Z66 Do not resuscitate; Z68.23 Body mass index [BMI] 23.0-23.9, adult; Z88.8 Allergy status to other drugs, medicaments and biological substances